=== PATIENT | male | born 1960 | race Caucasian/White ===

== ENCOUNTER 2019-02-05 08:35 | Inpatient (IN) | payer MEDICARE, OTHER ==
[2019-02-05] MEDS ORDERED: SODIUM CHLORIDE 0.9% 1,000 ML IV ONE ×2 (08:49)
[2019-02-05] MEDS ORDERED: methylPREDNISolone SOD SUCCI 125 MG/2 ML VIAL IV STA (08:51)
--- NOTE | 2019-02-05 08:58 | ED ---
Altered Mental Status HPI - General Stated Complaint: dehydration/UTI Time Seen by Provider: 02/05/19 08:35 Source: patient, EMS, RN notes reviewed Mode of arrival: EMS - History of Present Illness Initial Comments: This is a 59-year-old male history of cerebral palsy and not MS as previously reported who was brought in for evaluation. He is reported have altered mental status and decreased responsiveness. He also is had decreased oral intake over the past several days. Per paramedics he has a strong smell of urine odor. No reports of fevers chills nausea vomiting sweats or other symptoms. Patient is a poor historian MD Complaint: altered mental status, decreased responsiveness - Related Data Home Medications Medication Instructions Recorded Confirmed Baclofen [Lioresal] 20 mg PO TID 02/05/19 02/05/19 Docusate [Colace] 100 mg PO DAILY 02/05/19 02/05/19 Ferrous Sulfate [Feosol] 325 mg PO DAILY 02/05/19 02/05/19 Melatonin 10 mg PO HS 02/05/19 02/05/19 Metoprolol Tartrate [Lopressor] 25 mg PO BID 02/05/19 02/05/19 Naproxen 375 mg PO BID 02/05/19 02/05/19 Ranitidine HCl 150 mg PO BID 02/05/19 02/05/19 Sodium Bicarbonate 325 mg PO DAILY 02/05/19 02/05/19 Verapamil HCl 120 mg PO TID 02/05/19 02/05/19 traMADol HCL [Ultram] 50 mg PO TID PRN 02/05/19 02/05/19 Allergies Allergy/AdvReac Type Severity Reaction Status Date / Time No Known Allergies Allergy Verified 02/05/19 09:16 Review of Systems ROS Statement: Those systems with pertinent positive or pertinent negative responses have been documented in the HPI. ROS Other: All systems not noted in ROS Statement are negative. General Exam - General Exam Comments Initial Comments: This is a well-developed asthenic appearing male who is awake alert but lethargic. General appearance: alert, in no apparent distress Head exam: Present: atraumatic, normocephalic, normal inspection Eye exam: Present: normal appearance, PERRL, EOMI. Absent: scleral icterus, conjunctival injection, periorbital swelling ENT exam: Present: mucous membranes dry Neck exam: Present: normal inspection. Absent: tenderness, meningismus, lymphadenopathy Respiratory exam: Present: decreased breath sounds. Absent: respiratory distress, wheezes, rales, rhonchi, stridor Cardiovascular Exam: Present: regular rate, normal rhythm, normal heart sounds. Absent: systolic murmur, diastolic murmur, rubs, gallop, clicks GI/Abdominal exam: Present: soft, normal bowel sounds. Absent: distended, tenderness, guarding, rebound, rigid exam: Present: normal inspection, circumcision Extremities exam: Present: normal inspection, full ROM, normal capillary refill. Absent: tenderness, pedal edema, joint swelling, calf tenderness Back exam: Present: normal inspection Neurological exam: Present: alert, oriented X3, CN II-XII intact. Absent: motor sensory deficit Psychiatric exam: Present: normal affect, normal mood Skin exam: Present: warm, dry, intact, normal color, other (Is a large decubitus ulcer noted on the sacral area.). Absent: rash Course Vital Signs 02/05/19 02/05/19 02/05/19 08:52 09:00 09:24 Temperature 94.3 F L Pulse Rate 62 64 50 L Respiratory 18 9 L 18 Rate Blood Pressure 101/57 101/57 75/49 O2 Sat by Pulse 98 98 98 Oximetry 02/05/19 02/05/19 02/05/19 09:30 10:00 11:27 Temperature Pulse Rate 50 L 51 L 60 Respiratory 25 H 11 L 18 Rate Blood Pressure 97/57 75/49 105/57 O2 Sat by Pulse 97 100 99 Oximetry 02/05/19 14:19 Temperature 98 F Pulse Rate 65 Respiratory 14 Rate Blood Pressure 99/53 O2 Sat by Pulse 97 Oximetry - Reevaluation(s) Reevaluation #1: 02/05/19 09:57 Patient is refusing urinary catheter. He was noted have a blood pressure 75/48 he will receive more IV fluids. Medical Decision Making - Medical Decision Making Patient did present with complaints of change in mental status evidence of dehydration does demonstrate decubitus ulceration. His urine was foul-smelling upon arrival culture is pending. Patient is started on antibiotics are discussed case with Dr. Crane patient will be admitted with ID consultation patient states he seen Dr. Kamara before - Lab Data Result diagrams: 02/05/19 09:03 07/23/19 09:34 Lab Results 02/05/19 02/05/19 02/05/19 Range/Units 09:03 09:03 09:03 WBC 18.7 H (3.8-10.6) k/uL RBC 3.90 L (4.30-5.90) m/uL Hgb 10.7 L (13.0-17.5) gm/dL Hct 34.3 L (39.0-53.0) % MCV 88.2 (80.0-100.0) fL MCH 27.4 (25.0-35.0) pg MCHC 31.1 (31.0-37.0) g/dL RDW 16.8 H (11.5-15.5) % Plt Count 521 H (150-450) k/uL Neutrophils % 91 % Lymphocytes % 3 % Monocytes % 4 % Eosinophils % 1 % Basophils % 0 % Neutrophils # 17.1 H (1.3-7.7) k/uL Lymphocytes # 0.6 L (1.0-4.8) k/uL Monocytes # 0.7 (0-1.0) k/uL Eosinophils # 0.3 (0-0.7) k/uL Basophils # 0.0 (0-0.2) k/uL Hypochromasia Slight Anisocytosis Slight PT (9.0-12.0) sec INR (<1.2) APTT (22.0-30.0) sec Sodium (137-145) mmol/L Potassium (3.5-5.1) mmol/L Chloride (98-107) mmol/L Carbon Dioxide (22-30) mmol/L Anion Gap mmol/L BUN (9-20) mg/dL Creatinine (0.66-1.25) mg/dL Est GFR (CKD-EPI)AfAm (>60 ml/min/1.73 sqM) Est GFR (CKD-EPI)NonAf (>60 ml/min/1.73 sqM) Glucose (74-99) mg/dL Plasma Lactic Acid Ang 1.1 (0.7-2.0) mmol/L Calcium (8.4-10.2) mg/dL Total Bilirubin (0.2-1.3) mg/dL AST (17-59) U/L ALT (21-72) U/L Alkaline Phosphatase (38-126) U/L Ammonia <9 (<30) umol/L Creatine Kinase (55-170) U/L Troponin I <0.012 (0.000-0.034) ng/mL Total Protein (6.3-8.2) g/dL Albumin (3.5-5.0) g/dL Cortisol ug/dL Urine Color Urine Appearance (Clear) Urine pH (5.0-8.0) Ur Specific Sunspot (1.001-1.035) Urine Protein (Negative) Urine Glucose (UA) (Negative) Urine Ketones (Negative) Urine Blood (Negative) Urine Nitrite (Negative) Urine Bilirubin (Negative) Urine Urobilinogen (<2.0) mg/dL Ur Leukocyte Esterase (Negative) Urine WBC Clumps (None) /hpf Ur Squamous Epith Cells (0-4) /hpf Amorphous Sediment (None) /hpf Hyaline Casts (0-2) /lpf Urine Mucus (None) /hpf Urine Opiates Screen (NotDetected) Ur Oxycodone Screen (NotDetected) Urine Methadone Screen (NotDetected) Ur Propoxyphene Screen (NotDetected) Ur Barbiturates Screen (NotDetected) U Tricyclic Antidepress (NotDetected) Ur Phencyclidine Scrn (NotDetected) Ur Amphetamines Screen (NotDetected) U Methamphetamines Scrn (NotDetected) U Benzodiazepines Scrn (NotDetected) Urine Cocaine Screen (NotDetected) U Marijuana (THC) Screen (NotDetected) 02/05/19 02/05/19 02/05/19 Range/Units 09:34 09:34 09:34 WBC (3.8-10.6) k/uL RBC (4.30-5.90) m/uL Hgb (13.0-17.5) gm/dL Hct (39.0-53.0) % MCV (80.0-100.0) fL MCH (25.0-35.0) pg MCHC (31.0-37.0) g/dL RDW (11.5-15.5) % Plt Count (150-450) k/uL Neutrophils % % Lymphocytes % % Monocytes % % Eosinophils % % Basophils % % Neutrophils # (1.3-7.7) k/uL Lymphocytes # (1.0-4.8) k/uL Monocytes # (0-1.0) k/uL Eosinophils # (0-0.7) k/uL Basophils # (0-0.2) k/uL Hypochromasia Anisocytosis PT 10.7 (9.0-12.0) sec INR 1.0 (<1.2) APTT 29.6 (22.0-30.0) sec Sodium 145 (137-145) mmol/L Potassium 4.6 (3.5-5.1) mmol/L Chloride 111 H (98-107) mmol/L Carbon Dioxide 23 (22-30) mmol/L Anion Gap 11 mmol/L BUN 38 H (9-20) mg/dL Creatinine 1.27 H (0.66-1.25) mg/dL Est GFR (CKD-EPI)AfAm 70 (>60 ml/min/1.73 sqM) Est GFR (CKD-EPI)NonAf 61 (>60 ml/min/1.73 sqM) Glucose 110 H (74-99) mg/dL Plasma Lactic Acid Ang (0.7-2.0) mmol/L Calcium 9.6 (8.4-10.2) mg/dL Total Bilirubin 0.5 (0.2-1.3) mg/dL AST 29 (17-59) U/L ALT 15 L (21-72) U/L Alkaline Phosphatase 111 (38-126) U/L Ammonia (<30) umol/L Creatine Kinase 398 H (55-170) U/L Troponin I (0.000-0.034) ng/mL Total Protein 6.2 L (6.3-8.2) g/dL Albumin 3.2 L (3.5-5.0) g/dL Cortisol 70 ug/dL Urine Color Urine Appearance (Clear) Urine pH (5.0-8.0) Ur Specific Sunspot (1.001-1.035) Urine Protein (Negative) Urine Glucose (UA) (Negative) Urine Ketones (Negative) Urine Blood (Negative) Urine Nitrite (Negative) Urine Bilirubin (Negative) Urine Urobilinogen (<2.0) mg/dL Ur Leukocyte Esterase (Negative) Urine WBC Clumps (None) /hpf Ur Squamous Epith Cells (0-4) /hpf Amorphous Sediment (None) /hpf Hyaline Casts (0-2) /lpf Urine Mucus (None) /hpf Urine Opiates Screen (NotDetected) Ur Oxycodone Screen (NotDetected) Urine Methadone Screen (NotDetected) Ur Propoxyphene Screen (NotDetected) Ur Barbiturates Screen (NotDetected) U Tricyclic Antidepress (NotDetected) Ur Phencyclidine Scrn (NotDetected) Ur Amphetamines Screen (NotDetected) U Methamphetamines Scrn (NotDetected) U Benzodiazepines Scrn (NotDetected) Urine Cocaine Screen (NotDetected) U Marijuana (THC) Screen (NotDetected) 02/05/19 Range/Units 12:55 WBC (3.8-10.6) k/uL RBC (4.30-5.90) m/uL Hgb (13.0-17.5) gm/dL Hct (39.0-53.0) % MCV (80.0-100.0) fL MCH (25.0-35.0) pg MCHC (31.0-37.0) g/dL RDW (11.5-15.5) % Plt Count (150-450) k/uL Neutrophils % % Lymphocytes % % Monocytes % % Eosinophils % % Basophils % % Neutrophils # (1.3-7.7) k/uL Lymphocytes # (1.0-4.8) k/uL Monocytes # (0-1.0) k/uL Eosinophils # (0-0.7) k/uL Basophils # (0-0.2) k/uL Hypochromasia Anisocytosis PT (9.0-12.0) sec INR (<1.2) APTT (22.0-30.0) sec Sodium (137-145) mmol/L Potassium (3.5-5.1) mmol/L Chloride (98-107) mmol/L Carbon Dioxide (22-30) mmol/L Anion Gap mmol/L BUN (9-20) mg/dL Creatinine (0.66-1.25) mg/dL Est GFR (CKD-EPI)AfAm (>60 ml/min/1.73 sqM) Est GFR (CKD-EPI)NonAf (>60 ml/min/1.73 sqM) Glucose (74-99) mg/dL Plasma Lactic Acid Ang (0.7-2.0) mmol/L Calcium (8.4-10.2) mg/dL Total Bilirubin (0.2-1.3) mg/dL AST (17-59) U/L ALT (21-72) U/L Alkaline Phosphatase (38-126) U/L Ammonia (<30) umol/L Creatine Kinase (55-170) U/L Troponin I (0.000-0.034) ng/mL Total Protein (6.3-8.2) g/dL Albumin (3.5-5.0) g/dL Cortisol ug/dL Urine Color Yellow Urine Appearance Cloudy (Clear) Urine pH 5.5 (5.0-8.0) Ur Specific Sunspot 1.016 (1.001-1.035) Urine Protein 1+ H (Negative) Urine Glucose (UA) Negative (Negative) Urine Ketones Trace H (Negative) Urine Blood Small H (Negative) Urine Nitrite Negative (Negative) Urine Bilirubin Negative (Negative) Urine Urobilinogen 2.0 (<2.0) mg/dL Ur Leukocyte Esterase Large H (Negative) Urine WBC Clumps Rare H (None) /hpf Ur Squamous Epith Cells 2 (0-4) /hpf Amorphous Sediment Occasional H (None) /hpf Hyaline Casts 4 H (0-2) /lpf Urine Mucus Occasional H (None) /hpf Urine Opiates Screen Detected H (NotDetected) Ur Oxycodone Screen Not Detected (NotDetected) Urine Methadone Screen Not Detected (NotDetected) Ur Propoxyphene Screen Not Detected (NotDetected) Ur Barbiturates Screen Not Detected (NotDetected) U Tricyclic Antidepress Not Detected (NotDetected) Ur Phencyclidine Scrn Not Detected (NotDetected) Ur Amphetamines Screen Not Detected (NotDetected) U Methamphetamines Scrn Not Detected (NotDetected) U Benzodiazepines Scrn Not Detected (NotDetected) Urine Cocaine Screen Not Detected (NotDetected) U Marijuana (THC) Screen Not Detected (NotDetected) - EKG Data -: EKG Interpreted by Vt EKG shows normal: sinus rhythm (Sinus bradycardia rate of 57 appear interval 174 QRS of 90 QT since QTC 460/447) - Radiology Data Radiology results: report reviewed (Imaging showed no definite acute findings.), image reviewed Disposition Clinical Impression: Sacral decubitus ulcer, stage III, Dehydration, Failure to thrive syndrome, adult, Renal insufficiency syndrome, Leukocytosis Disposition: ADMITTED IP TO THIS [facility] Condition: Fair Referrals: Dontae Swanson MD [Primary Care Provider] - 1-2 days
[2019-02-05] MEDS ORDERED: SODIUM CHLORIDE 0.9% 1,000 ML IV STA (09:32)
[2019-02-05 09:35] LABS: Lactic Acid, Venous 1.1 mmol/L (0.7-2.0)
[2019-02-05 09:42] LABS: Ammonia <9 umol/L (<30)
[2019-02-05 09:46] LABS: Anisocytosis Slight; Basophils % (A) 0 %; Eosinophils # (A) 0.3 k/uL (0-0.7); Eosinophils % (A) 1 %; HCT 34.3 % (39.0-53.0); HGB 10.7 gm/dL (13.0-17.5); Hypochromasia Slight; Lymphocytes # (A) 0.6 k/uL (1.0-4.8); Lymphocytes % (A) 3 %; MCH 27.4 pg (25.0-35.0); MCHC 31.1 g/dL (31.0-37.0); MCV 88.2 fL (80.0-100.0); Mean Platelet Volume 6.8; Monocytes # (A) 0.7 k/uL (0-1.0); Monocytes % (A) 4 %; Neutrophils # (A) 17.1 k/uL (1.3-7.7); Neutrophils % (A) 91 %; Platelet Count 521 k/uL (150-450); RDW 16.8 % (11.5-15.5); WBC 18.7 k/uL (3.8-10.6)
[2019-02-05 10:00] LABS: Partial Thromboplastin Time 29.6 sec (22.0-30.0); Prothrombin Time 10.7 sec (9.0-12.0)
[2019-02-05 10:03] LABS: Albumin 3.2 g/dL (3.5-5.0); Calcium 9.6 mg/dL (8.4-10.2); Potassium 4.6 mmol/L (3.5-5.1); Total Bilirubin 0.5 mg/dL (0.2-1.3); Total Protein 6.2 g/dL (6.3-8.2)
--- NOTE | 2019-02-05 10:14 | CT ---
EXAMINATION TYPE: CT brain wo con DATE OF EXAM: 02/05/2019 COMPARISON: None HISTORY: Weakness, AMS CT DLP: 1099.4 mGycm Automated exposure control for dose reduction was used. Helical imaging through the brain. FINDINGS: There is no hemorrhage or hydrocephalus present. Cortical atrophy is noted. There are cerebral vascul ar calcifications. Orbits show a symmetric appearance. Calvarium is intact. Paranasal sinuses and mas toid air cells as visualized are remarkable for possible mucus retention cyst or polyp in the left ma xillary sinus, inflammatory change in the mastoid air cells on the left. Periventricular white matter shows patchy low attenuation. There is some artifact present. IMPRESSION: AGE-RELATED CHANGES OF ATROPHY AND PROBABLE CHRONIC SMALL VESSEL ISCHEMIA.
--- NOTE | 2019-02-05 10:17 | XR ---
EXAMINATION TYPE: XR chest 2V DATE OF EXAM: 02/05/2019 COMPARISON: NONE HISTORY: Altered mental status TECHNIQUE: Frontal and lateral views of the chest are obtained. FINDINGS: There is some increased AP diameter of the chest with flattening of hemidiaphragms suggest ing possible underlying COPD. Multilevel compression deformities present in the lower thoracic, upper lumbar spine region. Retrocardiac density with central lucencies compatible with underlying hiatal h ernia. There may be some basilar atelectasis or scarring. Patient is markedly rotated. Heart size tho ught to be normal accounting for technique. No evident pneumothorax. There are overlying cardiac lead s. No evident pleural effusion. IMPRESSION: Some minimal basilar atelectasis or scarring may be present, follow-up as indicated. Add itional findings above.
[2019-02-05 13:17] LABS: Amorphous Sediment,Urine Occasional /hpf; Appearance,Urine Cloudy (Clear); Bilirubin,Urine Negative (Negative); Blood,Urine Small (Negative); Color,Urine Yellow; Glucose,Urine (UA) Negative (Negative); Hyaline Casts,Urine 4 /lpf (0-2); Ketones,Urine Trace (Negative); Leukocyte Esterase,Urine Large (Negative); Mucus,Urine Occasional /hpf; Nitrite,Urine Negative (Negative); PH, Urine 5.5 (5.0-8.0); Protein,Urine 1+ (Negative); Specific Gravity,Urine 1.016 (1.001-1.035); Squamous Epithelial Cell,Urine 2 /hpf (0-4)
[2019-02-05 13:27] LABS: Amphetamine Screen,Urine Not Detected (NotDetected); Barbiturate Screen,Urine Not Detected (NotDetected); Benzodiazepines Screen,Urine Not Detected (NotDetected); Cocaine Screen,Urine Not Detected (NotDetected); Methadone Screen, Urine Not Detected (NotDetected); Opiate Screen,Urine Detected (NotDetected); Oxycodone Screen, Urine Not Detected (NotDetected); Phencyclidine Screen,Urine Not Detected (NotDetected); Tricyclic Antidepressant,Urine Not Detected (NotDetected); Urn Cannabinoid Scrn Not Detected (NotDetected)
[2019-02-05] MEDS ORDERED: cefTRIAXone IN SWFI 1,000 MG/10 ML SYRINGE IVP STA (13:45)
[2019-02-05] MEDS ORDERED: NALOXONE 0.4 MG/ML 1 ML VIAL IV PRN (14:58)
[2019-02-05] MEDS ORDERED: ACETAMINOPHEN TAB 325 MG TAB PO PRN (14:58)
[2019-02-05] MEDS: traMADol 50 MG TAB PO PRN (15:13)
[2019-02-05] MEDS: SODIUM CHLORIDE 0.9% 1,000 ML IV SCH ×2 (15:15→23:49)
[2019-02-05] MEDS: BACLOFEN 10 MG TAB PO SCH ×2 (17:03→19:51)
[2019-02-05] MEDS: PIPERACILLIN-TAZOBACTAM 3.375 GM in SODIUM CHLORIDE 0.9% 100 ML IVPB SCH ×2 (17:03→23:50)
[2019-02-05] MEDS: VERAPAMIL 40 MG TAB PO SCH ×2 (17:34→19:51)
--- NOTE | 2019-02-05 18:36 | P.HPIM ---
History of Present Illness H&P Date: 02/05/19 (Large infected decubitus, UTI.) Chief Complaint: 59 years old white male with altered mental status. This is a dictation of history and physical patient is Dr. Dontae Swanson and I am covering him at this time and the patient supposedly will continue care with me. Dr. Swanson. Patient brought to the emergency room at [facility], 59 years old white male they considered his past diagnosis of cerebral palsy, and he has decrease has reported altered mental status and unresponsiveness over the past several days her the ER, when the paramedics pick them up he was with the strong smell of urine as well as the order of infection. As patient seen and evaluated in the ER module 5, he stated that he did not have palsyt but he fell off the stair accidentally and be below age of 1 year as and he went through the stairs resulted in several fractures and he had subsequently multiple surgery as well and head injury as well. However his status appears to be cerebral palsy. His current medication is #1 baclofen 20 mg 3 times a day Colace 100 mg daily and he'll complain of chronic constipation. Ferrous sulfate Feosol 325 mg once a day, melatonin 10 mg at bedtime, metoprolol tartrate 25 mg twice a day, naproxen 375 mg twice a day, amantadine HCL 150 mg twice a day, sodium bicarb 325 mg once daily, verapamil 120 mg 3 times a day as needed tramadol 50 mg 3 times a day. Condition ALLERGY is unknown. He has a sibling but he was refused to talk about it and he doesn't want to communicate with them. He has a friend who will come and help him. Both parents unclear as a new patient who is POA however patient can speak for himself. Habits: He smoked a pack per day. No alcohol intake. Review of system: Mainly associated with the smell and the being on his back and large decubitus infected and need for for care. He stated that he does not want to go to any prison and he had a home and he wants to go back to his home's unclear how he and help himself with the one friend able to calm intermittently. Patient stated that he can urinate, and then when he feel that he wants to go to the bathroom he goes to commode or bedpan but I not sure about his mobility to do that on his own. Review of system: He is conscious alert. No chest pain and no palpitation with a history of hypertension. He had history of underlying severe deformity of the thorax with the underlying increased anteroposterior diameter with kyphoscoliosis. He has natural teeth and able to eat. He had a scar in his abdomen and scar on the appendix area and he stated the abdomen was for hernia repair. Because of his large decubitus on his back with the vacation no and pocketing behind and probably circumferential 15 cm or more. Patient seen by Dr. Kamara the infectious disease who knows him from previous admission at [facility] under care of Dr. Swanson at that time. I did smoke was Dr. Kamara as well as a Blossom informs me that the patient needs a fourth her debridement extensively on the back and he will be consulting Dr. Mccarthy or Dr. maurice has been knowing the patient before. He could not move his lower extremities and he had also fungal infection of the toenails. He may need rectal suppository to start his BM and a shower as well care. Review of other systems and the rest of the 14was not contributory. On examination Temperature 90.8 pulse 65. Preventative regular respiratory rate 14 and blood pressure at the time of admission 99/53 however subsequently at 1600 hour his blood pressure 131/76 and he has also rate of 67 and respiratory rate 16 and his pulse ox 98 on room air. Patient on verapamil and planned to have occasionally bradycardia. HEENT: The head was normocephalic and atraumatic pupil was equal reactive conjunctiva was pink sclera was nonicteric he had fascial cyst when I ask him about it he said his renal cyst chronically present. Oropharynx he had missing teeth upper and lower but the rest can be used for his eating and able to eat and swallow normally. Hearing is normal. The chest: Severe deformity of the thoracic cavity with normal breath sound and the chest x-ray atelectasis minimal and severe rotation which is the patient current structure of the thorax with increased anteroposterior diameter. Heart regular sinus rhythm occasional bradycardia due to medication, patient has history of hypertension which is controlled very well and history of tachycardia in the past currently controlled as well. No chest pain no anginal pain. The abdomen soft positive bowel sounds no tenderness. Genitalia was normal. Back: Severe kyphoscoliosis with the large area of the coccyx and the sacrum and the lower lumbar of decubitus due to bedridden. With the love tissue of dictation as well needs further debridement. Extremities: No purposes movement and he could not really raise his legs or moving the feet intentionally and the pulses is impaired 1+ over 2+ bilaterally. Assessment: #1 large infected decubitus with bad smell and odor. #2 urinary tract infection. #3 underlying history of cerebral palsy, computed tomography scan of the brain was done on admission in the ER indicating age-related changes of atrophy and probable chronic small vessel ischemia. #4 EKG on admission was sinus bradycardia with the rate 57 bpm with the normal EKG. #5 leukocytosis secondary to the infection questionable sepsis. Plan: #1 continue the current medication #20 consultation with infectious disease Dr. Kamara where I did talk to him today on the phone. #3 consultation with the surgeon for evaluation and treatment and debridement with the infected large decubitus. #4 antibiotic started Zosyn IV piggyback per infectious disease. For further treatment depending on the progression. We will increase the Colace to twice a day. May need Dulcolax suppository for BM. Past Medical History Additional Past Medical History / Comment(s): Cerbral Palsy History of Any Multi-Drug Resistant Organisms: None Reported Past Surgical History: No Surgical Hx Reported Past Psychological History: No Psychological Hx Reported Smoking Status: Never smoker Past Alcohol Use History: None Reported Past Drug Use History: None Reported Medications and Allergies Home Medications Medication Instructions Recorded Confirmed Type Baclofen [Lioresal] 20 mg PO TID 02/05/19 02/05/19 History Docusate [Colace] 100 mg PO DAILY 02/05/19 02/05/19 History Ferrous Sulfate [Feosol] 325 mg PO DAILY 02/05/19 02/05/19 History Metoprolol Tartrate [Lopressor] 25 mg PO BID 02/05/19 02/05/19 History RX: Melatonin 10 mg PO HS 02/05/19 02/05/19 History RX: Naproxen 375 mg PO BID 02/05/19 02/05/19 History RX: Ranitidine HCl 150 mg PO BID 02/05/19 02/05/19 History RX: Sodium Bicarbonate 325 mg PO DAILY 02/05/19 02/05/19 History RX: Verapamil HCl 120 mg PO TID 02/05/19 02/05/19 History traMADol HCL [Ultram] 50 mg PO TID PRN 02/05/19 02/05/19 History Allergies Allergy/AdvReac Type Severity Reaction Status Date / Time No Known Allergies Allergy Verified 02/05/19 09:16 Physical Exam Vitals: Vital Signs Temp Pulse Resp BP Pulse Ox 02/05/19 16:00 67 16 131/76 02/05/19 15:00 61 18 116/84 98 02/05/19 14:19 98 F 65 14 99/53 97 02/05/19 11:27 60 18 105/57 99 02/05/19 10:00 51 L 11 L 75/49 100 02/05/19 09:30 50 L 25 H 97/57 97 02/05/19 09:24 50 L 18 75/49 98 02/05/19 09:00 64 9 L 101/57 98 02/05/19 08:52 94.3 F L 62 18 101/57 98 Intake and Output 02/05/19 02/05/19 02/05/19 06:59 14:59 22:59 Other: Voiding Method Urinal Diaper Weight 49.895 kg Results CBC & Chem 7: 02/05/19 09:03 02/05/19 09:34 Labs: Abnormal Lab Results - Last 24 Hours (Table) 02/05/19 02/05/19 02/05/19 Range/Units 09:03 09:34 12:55 WBC 18.7 H (3.8-10.6) k/uL RBC 3.90 L (4.30-5.90) m/uL Hgb 10.7 L (13.0-17.5) gm/dL Hct 34.3 L (39.0-53.0) % RDW 16.8 H (11.5-15.5) % Plt Count 521 H (150-450) k/uL Neutrophils # 17.1 H (1.3-7.7) k/uL Lymphocytes # 0.6 L (1.0-4.8) k/uL Chloride 111 H (98-107) mmol/L BUN 38 H (9-20) mg/dL Creatinine 1.27 H (0.66-1.25) mg/dL Glucose 110 H (74-99) mg/dL ALT 15 L (21-72) U/L Creatine Kinase 398 H (55-170) U/L Total Protein 6.2 L (6.3-8.2) g/dL Albumin 3.2 L (3.5-5.0) g/dL Urine Protein 1+ H (Negative) Urine Ketones Trace H (Negative) Urine Blood Small H (Negative) Ur Leukocyte Esterase Large H (Negative) Urine WBC 50 H (0-5) /hpf Urine WBC Clumps Rare H (None) /hpf Amorphous Sediment Occasional H (None) /hpf Hyaline Casts 4 H (0-2) /lpf Urine Mucus Occasional H (None) /hpf Urine Opiates Screen Detected H (NotDetected)
[2019-02-05] MEDS ORDERED: BISACODYL 10 MG SUPP RECTAL STA (18:46)
[2019-02-05] MEDS: METOPROLOL TARTRATE 25 MG TAB PO SCH (19:51)
[2019-02-05] MEDS: FAMOTIDINE 20 MG TAB PO SCH (19:51)
[2019-02-05] MEDS: NAPROXEN 250 MG TAB PO SCH (19:52)
[2019-02-05] MEDS: MELATONIN 5 MG TABLET PO SCH (19:52)
[2019-02-05] MEDS: DOCUSATE 100 MG CAP PO SCH (19:53)
--- NOTE | 2019-02-05 23:33 | P.CONS ---
History of Present Illness - Reason for Consult Consult date: 02/05/19 Urinary tract infection and sacral pressure ulcer Requesting physician: Milo Crane - Chief Complaint Mental status changes and foul-smelling urine - History of Present Illness Patient is a 59 year male with a past medical history significant for spina bifida ,previous history of left renal/reteroperitoneal abscess ,Patient has been brought in to [facility] when the mass for the patient did have decreased level of responsiveness decreased oral intake not feeling well cloudy smelly urine patient's symptom has been going on for few days including decreased oral intake patient was evaluated by the fistula presented to the hospital patient was hypothermic with a temperature of 94 he did have elevated white count 15,000 did have a positive UA with a diagnosis of urinary tract infection with sepsis patient was started on Zosyn and infectious disease was consulted for further recommendation regarding antibiotic Patient also noticed to have a sacral pressure ulcer the patient is a has for a couple of weeks now patient has no symptoms of pain to that area he did have a necrotic page Foul-Smelling to the Sacral Wound Area Review of Systems Positive points has been mentioned in HPI rest of the systems are negative Past Medical History Additional Past Medical History / Comment(s): Cerbral Palsy History of Any Multi-Drug Resistant Organisms: None Reported Past Surgical History: No Surgical Hx Reported Past Psychological History: No Psychological Hx Reported Smoking Status: Never smoker Past Alcohol Use History: None Reported Past Drug Use History: None Reported Medications and Allergies Home Medications Medication Instructions Recorded Confirmed Type Baclofen [Lioresal] 20 mg PO TID 02/05/19 02/05/19 History Docusate [Colace] 100 mg PO DAILY 02/05/19 02/05/19 History Ferrous Sulfate [Feosol] 325 mg PO DAILY 02/05/19 02/05/19 History Melatonin 10 mg PO HS 02/05/19 02/05/19 History Metoprolol Tartrate [Lopressor] 25 mg PO BID 02/05/19 02/05/19 History Naproxen 375 mg PO BID 02/05/19 02/05/19 History Ranitidine HCl 150 mg PO BID 02/05/19 02/05/19 History Sodium Bicarbonate 325 mg PO DAILY 02/05/19 02/05/19 History Verapamil HCl 120 mg PO TID 02/05/19 02/05/19 History traMADol HCL [Ultram] 50 mg PO TID PRN 02/05/19 02/05/19 History Allergies Allergy/AdvReac Type Severity Reaction Status Date / Time No Known Allergies Allergy Verified 02/05/19 09:16 Physical Exam Vitals: Vital Signs Temp Pulse Resp BP Pulse Ox 02/05/19 16:00 67 16 131/76 02/05/19 15:00 61 18 116/84 98 02/05/19 14:19 98 F 65 14 99/53 97 02/05/19 11:27 60 18 105/57 99 02/05/19 10:00 51 L 11 L 75/49 100 02/05/19 09:30 50 L 25 H 97/57 97 02/05/19 09:24 50 L 18 75/49 98 02/05/19 09:00 64 9 L 101/57 98 02/05/19 08:52 94.3 F L 62 18 101/57 98 Intake and Output 02/05/19 02/05/19 02/05/19 06:59 14:59 22:59 Other: Voiding Method Urinal Diaper Weight 49.895 kg GENERAL DESCRIPTION: Middle-aged male lying in bed, no distress. No tachypnea or accessory muscle of respiration use. HEENT: Shows Pallor , no scleral icterus. Oral mucous membrane is dry. No p haryngeal erythema or thrush NECK: Trachea central, no thyromegaly. LUNGS: Unlabored breathing. Decreased this from the base. No wheeze or crackle. HEART: S1, S2, regular rate and rhythm. No loud murmur ABDOMEN: Soft, no tenderness , guarding or rigidity, no organomegaly EXTREMITIES: No edema of feet. SKIN: No rash, no masses palpable. SACRUM: Patient did have unstageable sacral pressure ulcer with necrotic patch some foul-smelling but no significant redness NEUROLOGICAL: The patient is awake, alert, oriented x3, mood and affect normal. Results CBC & Chem 7: 02/05/19 09:03 02/05/19 09:34 Labs: Abnormal Lab Results - Last 24 Hours (Table) 02/05/19 02/05/19 02/05/19 Range/Units 09:03 09:34 12:55 WBC 18.7 H (3.8-10.6) k/uL RBC 3.90 L (4.30-5.90) m/uL Hgb 10.7 L (13.0-17.5) gm/dL Hct 34.3 L (39.0-53.0) % RDW 16.8 H (11.5-15.5) % Plt Count 521 H (150-450) k/uL Neutrophils # 17.1 H (1.3-7.7) k/uL Lymphocytes # 0.6 L (1.0-4.8) k/uL Chloride 111 H (98-107) mmol/L BUN 38 H (9-20) mg/dL Creatinine 1.27 H (0.66-1.25) mg/dL Glucose 110 H (74-99) mg/dL ALT 15 L (21-72) U/L Creatine Kinase 398 H (55-170) U/L Total Protein 6.2 L (6.3-8.2) g/dL Albumin 3.2 L (3.5-5.0) g/dL Urine Protein 1+ H (Negative) Urine Ketones Trace H (Negative) Urine Blood Small H (Negative) Ur Leukocyte Esterase Large H (Negative) Urine WBC 50 H (0-5) /hpf Urine WBC Clumps Rare H (None) /hpf Amorphous Sediment Occasional H (None) /hpf Hyaline Casts 4 H (0-2) /lpf Urine Mucus Occasional H (None) /hpf Urine Opiates Screen Detected H (NotDetected) Assessment and Plan Assessment: 1-patient has been brought to the hospital with sepsis in this patient who did have hypokalemia elevated white count source is likely urinary tract infection in this patient who did have a history of complicated UTI with abscess 2-patient with unstageable sacral pressure ulcer but no definite cellulitis Plan: 1-patient will be treated with Zosyn 3.375 g every 8 hours 2-surgical consultation for debridement of the sacral pressure ulcer and deep culture if needed in the meantime keep the area of the pressure 3-IV fluids we will follow on clinical condition and culture to further adjust medication if needed Thank you for this consultation will follow this patient along with you Time with Patient: Greater than 30
[2019-02-06] MEDS: PIPERACILLIN-TAZOBACTAM 3.375 GM in SODIUM CHLORIDE 0.9% 100 ML IVPB SCH ×2 (08:16→16:18)
[2019-02-06] MEDS ORDERED: DOCUSATE 100 MG CAP PO SCH (09:00)
[2019-02-06] MEDS: SODIUM BICARBONATE TAB 650 MG TAB PO SCH (09:14)
[2019-02-06] MEDS: VERAPAMIL 40 MG TAB PO SCH ×3 (09:15→21:12)
[2019-02-06] MEDS: BACLOFEN 10 MG TAB PO SCH ×3 (09:15→21:12)
[2019-02-06] MEDS: traMADol 50 MG TAB PO PRN ×2 (09:18→16:17)
[2019-02-06] MEDS: FERROUS SULFATE 325 MG TAB PO SCH (09:20)
[2019-02-06] MEDS: METOPROLOL TARTRATE 25 MG TAB PO SCH (09:21)
[2019-02-06] MEDS: FAMOTIDINE 20 MG TAB PO SCH ×2 (09:23→21:10)
[2019-02-06] MEDS: NAPROXEN 250 MG TAB PO SCH ×2 (09:24→21:10)
[2019-02-06] MEDS: DOCUSATE 100 MG CAP PO SCH ×2 (09:25→21:07)
[2019-02-06 09:48] VITALS: BMI 15.7
[2019-02-06 10:18] LABS: African American GFR (CKD) >90 (>60 ml/min/1.73 sqM); Anion Gap 7 mmol/L; Blood Urea Nitrogen 18 mg/dL (9-20); Calcium 8.7 mg/dL (8.4-10.2); Carbon Dioxide 21 mmol/L (22-30); Chloride 114 mmol/L (98-107); Glucose 91 mg/dL (74-99); Potassium 3.9 mmol/L (3.5-5.1); Sodium 142 mmol/L (137-145)
[2019-02-06 10:19] LABS: Anisocytosis Slight; Basophils % (A) 0 %; Eosinophils # (A) 0.2 k/uL (0-0.7); Eosinophils % (A) 1 %; HCT 28.3 % (39.0-53.0); Hypochromasia Slight; Lymphocytes # (A) 0.4 k/uL (1.0-4.8); Lymphocytes % (A) 4 %; MCH 27.8 pg (25.0-35.0); MCHC 31.4 g/dL (31.0-37.0); MCV 88.6 fL (80.0-100.0); Mean Platelet Volume 6.7; Monocytes # (A) 0.4 k/uL (0-1.0); Monocytes % (A) 4 %; Neutrophils # (A) 9.6 k/uL (1.3-7.7); Neutrophils % (A) 90 %; Platelet Count 404 k/uL (150-450); WBC 10.8 k/uL (3.8-10.6)
[2019-02-06 10:39] LABS: HGB 8.9 gm/dL (13.0-17.5)
[2019-02-06] MEDS: SODIUM CHLORIDE 0.9% 1,000 ML IV SCH ×2 (13:30→14:49)
--- NOTE | 2019-02-06 13:32 | P.GSCN ---
History of Present Illness Consult date: 02/06/19 Reason for Consult: Sacral decubitus History of present illness: The patient is a 59-year-old man well-known to me. I been following him for a rectal adenocarcinoma. This was treated with chemo and radiation. He came in with mental status changes and was found to have a urinary tract infection and a sacral decubitus ulcer. According to him the ulcer has been there a few days to weeks. He is wheelchair bound. He's not had to have any ulcers debrided recently Review of Systems All systems: negative Past Medical History Past Medical History: Cancer (Rectal adenocarcinoma), Musculoskeletal Disorder Additional Past Medical History / Comment(s): Cerbral Palsy History of Any Multi-Drug Resistant Organisms: None Reported Past Surgical History: No Surgical Hx Reported Past Psychological History: No Psychological Hx Reported Smoking Status: Never smoker Past Alcohol Use History: None Reported Past Drug Use History: None Reported - Past Family History Mother Family Medical History: No Reported History Medications and Allergies Home Medications Medication Instructions Recorded Confirmed Type Baclofen [Lioresal] 20 mg PO TID 02/05/19 02/05/19 History Docusate [Colace] 100 mg PO DAILY 02/05/19 02/05/19 History Ferrous Sulfate [Feosol] 325 mg PO DAILY 02/05/19 02/05/19 History Melatonin 10 mg PO HS 02/05/19 02/05/19 History Metoprolol Tartrate [Lopressor] 25 mg PO BID 02/05/19 02/05/19 History Naproxen 375 mg PO BID 02/05/19 02/05/19 History Ranitidine HCl 150 mg PO BID 02/05/19 02/05/19 History Sodium Bicarbonate 325 mg PO DAILY 02/05/19 02/05/19 History Verapamil HCl 120 mg PO TID 02/05/19 02/05/19 History traMADol HCL [Ultram] 50 mg PO TID PRN 02/05/19 02/05/19 History Allergies Allergy/AdvReac Type Severity Reaction Status Date / Time No Known Allergies Allergy Verified 02/05/19 09:16 Surgical - Exam Osteopathic Statement: *. No significant issues noted on an osteopathic structural exam other than those noted in the History and Physical/Consult. Vital Signs Temp Pulse Resp BP Pulse Ox 94.3 F L 62 18 101/57 98 02/05/19 08:52 02/05/19 08:52 02/05/19 08:52 02/05/19 08:52 02/05/19 08:52 - General Appears in his usual state of health well nourished, no distress - ENT normal mucosa, no hearing loss - Neck trachea midline - Respiratory normal expansion, normal respiratory effort - Cardiovascular Rhythm: regular - Integumentary Sacral decubitus ulcer with foul-smelling drainage. Measurements will be documented in the operative note Results - Labs 02/06/19 09:28 02/06/19 09:28 Abnormal Lab Results - Last 24 Hours (Table) 02/05/19 02/06/19 02/06/19 Range/Units 12:55 09:28 09:28 WBC 10.8 H (3.8-10.6) k/uL RBC 3.20 L (4.30-5.90) m/uL Hgb 8.9 L D (13.0-17.5) gm/dL Hct 28.3 L (39.0-53.0) % RDW 17.0 H (11.5-15.5) % Neutrophils # 9.6 H (1.3-7.7) k/uL Lymphocytes # 0.4 L (1.0-4.8) k/uL Chloride 114 H (98-107) mmol/L Carbon Dioxide 21 L (22-30) mmol/L Urine WBC 50 H (0-5) /hpf Urine Opiates Screen Detected H (NotDetected) Microbiology - Last 24 Hours (Table) 02/05/19 09:03 Blood Culture - Preliminary Blood No Growth after 24 hours 02/05/19 12:55 Urine Culture - Preliminary Urine,Voided Diabetes panel 02/06/19 Range/Units 09:28 Sodium 142 (137-145) mmol/L Potassium 3.9 (3.5-5.1) mmol/L Chloride 114 H (98-107) mmol/L Carbon Dioxide 21 L (22-30) mmol/L BUN 18 (9-20) mg/dL Creatinine 0.87 (0.66-1.25) mg/dL Glucose 91 (74-99) mg/dL Calcium 8.7 (8.4-10.2) mg/dL Calcium panel 02/06/19 Range/Units 09:28 Calcium 8.7 (8.4-10.2) mg/dL Pituitary panel 02/06/19 Range/Units 09:28 Sodium 142 (137-145) mmol/L Potassium 3.9 (3.5-5.1) mmol/L Chloride 114 H (98-107) mmol/L Carbon Dioxide 21 L (22-30) mmol/L BUN 18 (9-20) mg/dL Creatinine 0.87 (0.66-1.25) mg/dL Glucose 91 (74-99) mg/dL Calcium 8.7 (8.4-10.2) mg/dL Adrenal panel 02/06/19 Range/Units 09:28 Sodium 142 (137-145) mmol/L Potassium 3.9 (3.5-5.1) mmol/L Chloride 114 H (98-107) mmol/L Carbon Dioxide 21 L (22-30) mmol/L BUN 18 (9-20) mg/dL Creatinine 0.87 (0.66-1.25) mg/dL Glucose 91 (74-99) mg/dL Calcium 8.7 (8.4-10.2) mg/dL Assessment and Plan Assessment: Sacral decubitus ulcer Paraplegia History rectal adenocarcinoma Plan: To or for surgical debridement. The patient's currently eating his lunch wall ranges for him tomorrow. Procedure risks and complications were discussed. Questions were encouraged and answered.
--- NOTE | 2019-02-06 16:28 | PN ---
PROGRESS NOTE DATE OF SERVICE: 02/06/2019 REASON FOR FOLLOWUP: UTI and sacral pressure ulcer. INTERVAL HISTORY: The patient is currently afebrile. The patient has been breathing comfortably. Denies having any chest pain. No nausea, vomiting, abdominal pain, or any diarrhea. PHYSICAL EXAMINATION: Blood pressure is 94/49 with a pulse of 66, temperature 98. He is 95% on room air. General description is a middle-aged male lying in bed in no distress. Respiratory system: Unlabored breathing. Clear to auscultation anteriorly. Heart S1, S2. Regular rate and rhythm. Abdomen soft, no tenderness. LABS: BUN of 18, creatinine 0.81, hemoglobin 8.1, white count 10.8. Urine cultures, blood cultures currently pending. DIAGNOSTIC IMPRESSION AND PLAN: 1. Patient admitted to the hospital with generalized weakness and a fever with concern for urinary tract infection. Currently covered with Zosyn to continue. 2. The patient did have unstageable sacral pressure ulcer. Postsurgical tomorrow. Positive deep cultures with infection. Monitor clinical course closely. Keep the area off the pressure. MMODL / IJN: [id number] /
[2019-02-06] MEDS: METOPROLOL TARTRATE 12.5 MG TAB PO SCH (21:07)
[2019-02-06] MEDS: MELATONIN 5 MG TABLET PO SCH (21:10)
[2019-02-07] MEDS: PIPERACILLIN-TAZOBACTAM 3.375 GM in SODIUM CHLORIDE 0.9% 100 ML IVPB SCH ×4 (00:05→23:09)
[2019-02-07] MEDS: SODIUM CHLORIDE 0.9% 1,000 ML IV SCH ×3 (07:28→22:18)
[2019-02-07 08:34] LABS: Anisocytosis Slight; Basophils % (A) 0 %; Eosinophils # (A) 0.2 k/uL (0-0.7); Eosinophils % (A) 3 %; HGB 9.2 gm/dL (13.0-17.5); Hypochromasia Slight; Lymphocytes # (A) 0.5 k/uL (1.0-4.8); Lymphocytes % (A) 5 %; MCH 26.6 pg (25.0-35.0); MCHC 30.6 g/dL (31.0-37.0); MCV 86.9 fL (80.0-100.0); Mean Platelet Volume 6.6; Monocytes # (A) 0.3 k/uL (0-1.0); Monocytes % (A) 4 %; Neutrophils # (A) 7.2 k/uL (1.3-7.7); Neutrophils % (A) 85 %; Platelet Count 464 k/uL (150-450); RBC 3.45 m/uL (4.30-5.90); RDW 16.7 % (11.5-15.5); Reticulocyte % 1.1 % (0.5-2.0); WBC 8.5 k/uL (3.8-10.6)
[2019-02-07 08:48] LABS: African American GFR (CKD) >90 (>60 ml/min/1.73 sqM); Anion Gap 8 mmol/L; Blood Urea Nitrogen 14 mg/dL (9-20); Calcium 8.8 mg/dL (8.4-10.2); Carbon Dioxide 24 mmol/L (22-30); Chloride 108 mmol/L (98-107); Creatine Kinase 203 U/L (55-170); Glucose 86 mg/dL (74-99); Potassium 3.9 mmol/L (3.5-5.1); Sodium 140 mmol/L (137-145)
[2019-02-07] MEDS ORDERED: IV FLUID CONTINUATION 1,000 ML IV ONE (08:52)
[2019-02-07] MEDS ORDERED: fentaNYL (PF) 50 MCG/ML 2 ML AMP ONE (08:58)
[2019-02-07] MEDS ORDERED: KETAMINE 10 MG/ML 20 ML VIAL ONE (08:58)
[2019-02-07] MEDS ORDERED: LIDOCAINE 1% INJ 10MG/ML (20 ML MDV) ONE (08:58)
[2019-02-07] MEDS ORDERED: MIDAZOLAM 2 MG/2 ML VIAL ONE (08:58)
[2019-02-07] MEDS ORDERED: PROPOFOL 10 MG/ML 20 ML VIAL IV ONE (08:58)
[2019-02-07] MEDS ORDERED: BUPIVACAINE (PF) 0.25% 30 ML VIAL SQ ONE ×2 (09:19)
[2019-02-07] MEDS ORDERED: LACTATED RINGERS 1,000 ML IV ONE (09:39)
--- NOTE | 2019-02-07 09:47 | P.OP ---
Date of Procedure: 02/07/19 Preoperative Diagnosis: Sacral decubitus ulcer Postoperative Diagnosis: Sacral decubitus ulcer with abscess Procedure(s) Performed: Excisional debridement sacral decubitus ulcer Anesthesia: MAC Surgeon: Ruthie Hernandez Estimated Blood Loss (ml): 25 Pathology: other (Culture, skin and subcutaneous tissues) Condition: stable Disposition: PACU Indications for Procedure: Infected sacral decubitus ulcer Operative Findings: Final measurements of the wound showed a skin defect of 9 x 5 cm. It undermines into the left 1 cm. Inferiorly 3 cm. Description of Procedure: The patient's taken the operative suite where he is prepped and draped in the usual sterile manner in the left lateral decubitus position. The necrotic skin and subcutaneous fatty tissue were sharply excised back to healthy bleeding tissue. There was noted to be an abscess cavity going inferiorly over the tip of the sacrum. Deep cultures were obtained of this material. The wound was then irrigated. It was packed with silver gauze and covered with dual Rodriguez. He tolerated the procedure without difficulty and was taken recovery room in satisfactory condition. We'll have wound care follow for further treatment.
[2019-02-07] MEDS: NAPROXEN 250 MG TAB PO SCH ×2 (11:03→22:13)
[2019-02-07] MEDS: FAMOTIDINE 20 MG TAB PO SCH ×2 (11:05→22:12)
[2019-02-07] MEDS: FERROUS SULFATE 325 MG TAB PO SCH (11:05)
[2019-02-07] MEDS: BACLOFEN 10 MG TAB PO SCH ×3 (11:05→22:13)
[2019-02-07] MEDS: DOCUSATE 100 MG CAP PO SCH ×2 (11:05→22:12)
[2019-02-07] MEDS: SODIUM BICARBONATE TAB 650 MG TAB PO SCH (11:06)
[2019-02-07] MEDS: traMADol 50 MG TAB PO PRN ×2 (11:11→22:13)
--- NOTE | 2019-02-07 12:41 | P.PN ---
Subjective Progress Note Date: 02/07/19 Principal diagnosis: #1 large necrotic decubitus on the lumbosacral area. #2. Tract infection. #3 bedridden with minimal movement at home. #4 cerebral palsy was walking disability. #5 chronic hypotensive, normal Andrea low-level. This is dictation on progress note date of service 02/07/2019. Patient seen and evaluated and he underwent a debridement yesterday and he has a dressing placed on the sacral and the lower lumbar decubitus which was infected. His laboratory has been reviewed and his white count currently normalized with the underlying use of the antibiotic and the debridement. Patient's conscious alert oriented 3 patient and his blood pressure 131/62 with a mean 85. His pulse ox between 98% to 94 however depend on his position as he has severe deformity of the thoracic cavity. His heart rate still in the bradycardic despite of adjusting his medication but he is nonsymptomatic and the blood pressure is back to the is normal. His white count 8.5 today on 02/07/2019, on admission 02/05/2019 his white count was 18.7 with marketed improvement. His anemia still present with hemoglobin 9.2 and hematocrit 30.0. His chemistry indicating normal sodium and normal potassium with the estimated glomerular filtration rate more than 90. We did recheck on CK with the underlying mild rhabdo and is improving with hydration from 398 currently 203 with a normal 170. Current exam today Patient has seen and examined denied any pain or complication or headache or blurred vision. He able to communicate. HEENT negative Neck was supple no JVD no thyromegaly no lymphadenopathy trachea midline. Chest severe abnormality with severe kyphoscoliosis and thoracic cavity expanded and he is a smoker with underlying COPD. Heart regular sinus rhythm. Abdomen soft positive bowel sounds. Extremities no edema and peripheral vascular disease with decreased pulses and no muscle tone, atrophic muscles with the DC was as well. Neuro: Cerebral palsy with a history of trauma prior to age of 1 year as he stated. Assessment: Large acute decubitus debridement for the necrotic tissue and infected. UTI however culture showed urogenital juan daniel. His leukocytosis is resolved. Patient is non-cooperative infusing the medication for the chronic constipation. The plan: We PT and OT was consulted, meanwhile we need to have administrator social welfare for brand planner. I do not think that patient will be able to be at home alone and he can care of his wound in the back with decubitus with inability to walk or to have any other help to help him for these care of his 1 and his medication as well with a friend. My suggestion that he should be continued in a shelter of his choice. Also we need to discuss the antibiotic and Dr. Novak willing to change antibiotic to oral. Meanwhile we need to discuss with Dr. Hernandez and the nurse practitioner that caring for the wound care center for women's patient will be followed by the wound care center and how we get the transportation to them meanwhile how long he should be in the hospital post debridement. Once arrangement by the brand planner and the administrator social welfare as well as the dictation from the surgeon as well as infectious disease will be discharging the patient with the question removal of the using the antibiotic also at outpatient. Objective - Vital Signs Vital signs: Vital Signs Temp 98.1 F 02/07/19 11:09 Pulse 53 L 02/07/19 11:23 Resp 17 02/07/19 11:09 BP 131/62 02/07/19 11:23 Pulse Ox 94 L 02/07/19 11:09 Intake & Output 02/06/19 02/07/19 02/07/19 18:59 06:59 18:59 Intake Total 1680 1590 350 Output Total 300 310 Balance 1680 1290 40 Weight 49.895 kg Intake: IV 350 Intake, IV Titration 1100 420 Amount Piperacillin-Tazobactam 3 100 .375 gm In Sodium Chloride 0.9% 100 ml @ 200 mls/hr IVPB Q8HR ANAY Rx#:[id number] Sodium Chloride 0.9% 1, 1000 420 000 ml @ 100 mls/hr IV . Q10H ANAY Rx#:[id number] Oral 580 1170 0 Output: Urine 300 300 Estimated Blood Loss 10 Other: Voiding Method Urinal Urinal # Voids 3 3 - Labs CBC & Chem 7: 02/07/19 07:52 02/07/19 07:52 Labs: Abnormal Lab Results - Last 24 Hours (Table) 02/07/19 02/07/19 Range/Units 07:52 07:52 RBC 3.45 L (4.30-5.90) m/uL Hgb 9.2 L (13.0-17.5) gm/dL Hct 30.0 L (39.0-53.0) % MCHC 30.6 L (31.0-37.0) g/dL RDW 16.7 H (11.5-15.5) % Plt Count 464 H (150-450) k/uL Lymphocytes # 0.5 L (1.0-4.8) k/uL Chloride 108 H (98-107) mmol/L Creatine Kinase 203 H (55-170) U/L Microbiology - Last 24 Hours (Table) 02/05/19 09:03 Blood Culture - Preliminary Blood No Growth after 48 hours 02/05/19 12:55 Urine Culture - Final Urine,Voided
[2019-02-07] MEDS: METOPROLOL TARTRATE 12.5 MG TAB PO SCH ×2 (12:45→22:12)
[2019-02-07] MEDS: VERAPAMIL 40 MG TAB PO SCH ×3 (12:48→22:14)
[2019-02-07 16:52] LABS: Iron Saturation 3.96 (15.00-50.00)
--- NOTE | 2019-02-07 20:49 | PN ---
PROGRESS NOTE DATE OF SERVICE: 02/07/2019. REASON FOR FOLLOWUP: 1. UTI. 2. Infected sacral pressure ulcer. INTERVAL HISTORY: The patient was taken to the OR this morning. The patient is status post debridement of his sacral wound. The patient noticed to have an abscess cavity which has been drained and culture has been obtained. The patient tolerated the procedure. Denies having any chest pain, shortness of breath or cough. No abdominal pain. No diarrhea. PHYSICAL EXAMINATION: Blood pressure 122/64 with a pulse of 50, temperature 98.1. He is 94% on room air. General description is a middle-aged male lying in bed in no distress. Respiratory system: Unlabored breathing, clear to auscultation anteriorly. Heart S1, S2. Regular rate and rhythm. Abdomen soft, no tenderness. Sacral wound is currently dressed up. LABS: Hemoglobin is 9.1, white count of 8.5. BUN of 14, creatinine 0.81. DIAGNOSTIC IMPRESSION AND PLAN: 1. Patient with infected sacral pressure ulcer with abscess, status post debridement. We will wait for the culture to finalize. Continue with Zosyn. 2. Positive urinalysis, however, urine culture has been negative. Monitor his clinical course closely. MMODL / IJN: [id number] /
[2019-02-07] MEDS: MELATONIN 5 MG TABLET PO SCH (22:12)
[2019-02-08] MEDS: SODIUM CHLORIDE 0.9% 1,000 ML IV SCH ×2 (05:02→22:25)
[2019-02-08] MEDS: PIPERACILLIN-TAZOBACTAM 3.375 GM in SODIUM CHLORIDE 0.9% 100 ML IVPB SCH ×2 (08:17→17:02)
[2019-02-08] MEDS: BACLOFEN 10 MG TAB PO SCH ×3 (08:18→22:18)
[2019-02-08] MEDS: METOPROLOL TARTRATE 12.5 MG TAB PO SCH ×2 (08:19→22:19)
[2019-02-08] MEDS: SODIUM BICARBONATE TAB 650 MG TAB PO SCH (08:19)
[2019-02-08] MEDS: NAPROXEN 250 MG TAB PO SCH ×2 (08:20→22:17)
[2019-02-08] MEDS: FERROUS SULFATE 325 MG TAB PO SCH (08:20)
[2019-02-08] MEDS: FAMOTIDINE 20 MG TAB PO SCH ×2 (08:20→22:17)
[2019-02-08] MEDS: DOCUSATE 100 MG CAP PO SCH ×2 (08:20→22:16)
[2019-02-08] MEDS: VERAPAMIL 40 MG TAB PO SCH ×3 (08:22→22:18)
[2019-02-08] MEDS: traMADol 50 MG TAB PO PRN ×2 (08:25→17:02)
--- NOTE | 2019-02-08 09:24 | P.CON ---
Consult Note - . Consult date: 02/08/19 Assessment/Plan:: This is a 59-year-old pleasant male who presented to the emergency room for altered mental status. Upon admission was found that the patient had a sacral decubitus nonhealing ulceration with pressure component with fatty later exposure. The site was surgically debrided final measurements of the wound 9 x 5 CM. Undermining noted inferiorly at 3 cm. Wound cultures are pending. Postsurgical intervention dressing included his silver and a DuoDERM. Patient was evaluated today dressing was soiled and saturated with a large amount of sanguineous fluid. Patient past medical history includes cerebral palsy, he is wheelchair-bound. Patient currently lives alone. He states that the ulceration started about a week or so ago when he began to notice it. Patient states that he has history of pressure ulcers in the past however he has not been to the wound care center. Discussed with patient the possibility utilization of wound VAC. Patient declined at this time stating that he needs to be able to sit up in his wheelchair because he does not want to continue to lay in bed. Currently patient is discussing that he is calling home upon discharge and is unsure if he wants to continue with wound care in the outpatient setting. Patient is agreeable at this time to continue with the prescribed dressings. Review Of Systems: Constitutional: No fever, no chills, no night sweats. No weight change. No weakness, fatigue or lethargy. No daytime sleepiness. Integumentary: Reports pressure ulcer to sacral. No rash or pruritus. No unusual bruising. No change in hair or nails. General Appearance: Alert, cooperative, no distress, appears stated age. Integumentary: Sacral decubitus ulcer with fatty layer exposure with pressure component- sanguineous drainage, fibrin, slough, and exudate noted Assessment/plan: 1. Sacral decubitus ulcer with fatty layer exposure with pressure component. dressing absorptive silver, DuoDERM to be changed Monday. May change outer dressing if soiled keep absorptive Silver in place only change Monday. Discussed with patient utilization of wound VAC patient declined. Discussed with patient utilization of outpatient wound care - patient to consider upon discharge. Pre-albumin ordered. Discussed with patient the importance of increasing protein in diet. Awaiting wound culture results. Thank you for the consultation, if any further questions we contact the wound care center. DNP note has been reviewed and discussed with Dr. Quijano and the impression and plan of care has been directed as dictated.
--- NOTE | 2019-02-08 12:59 | P.PN ---
Subjective Progress Note Date: 02/08/19 This is a progress note date of service N7 [id number] and patient comfortable and he had the debridement yesterday and waiting for the culture of the wound to adjust of the antibiotic. Currently patient on Zosyn IV piggyback and as I did display with Dr. Kishore hernández infectious disease he would like to him to stay one day more for availability of the culture prior to discharge. I did discharge the patient today however I can't really cancel this discharge to wait for the culture. The infectious disease Dr. Kishore hernández recommendation and opinion. Patient his white count on February 07 become normalized to 8.5 with the electrolytes within normal limit. Patient is conscious alert oriented and he is eating his lunch comfortably and his vital sign indicating a temperature 97.6 and heart rate is 56-65 beats per minutes respiratory rate 18 and blood pressure 116/68 with the underlying pulse ox 98%. His examination: Conscious alert oriented able to eat and swallow in bed and he could not ambulate and with the loss of function of the lower extremities. The HEENT no changes. Neck was supple no JVD no thyromegaly no lymphadenopathy trachea midline. Chest was clear to auscultation and percussion with the underlying increased anteroposterior diameter was deformity of the thorax. The The heart was regular sinus rhythm and abdomen was soft positive bowel sounds no organ enlargement extremities he had decrease in function decreased muscle tone muscle atrophy and minimal movement of the feet but he stated that he can stand up. The assessment: Infected large decubitus over the coccyx and the LS and debrided by Dr. Hernandez and culture is not available at this time and that will delay patient. For the discharge home and the brand planner made arrangement to be at home with the [facility] planning group to do that care for the patient has been as well as continuing the wound care center about cleaning out cleaning as well as follow- up as well as Dr. Kishore hernández. Assessment infected large decubitus with the leukocytosis and needed debridement. UTI however the culture was negative. Bradycardia secondary to medication and has been improved. Plan: We will wait for tomorrow for the culture and the changes of antibiotic to oral and subsequently discharged home if's agreeable with infectious disease is end of dictation thank you Objective - Vital Signs Vital signs: Vital Signs Temp 97.6 F 02/08/19 11:19 Pulse 56 L 02/08/19 11:19 Resp 18 02/08/19 11:19 BP 116/68 02/08/19 11:19 Pulse Ox 98 02/08/19 11:19 Intake & Output 02/07/19 02/08/19 02/08/19 18:59 06:59 18:59 Intake Total 2530 1390 720 Output Total 610 875 Balance 1920 515 720 Intake: IV 350 Intake, IV Titration 600 800 Amount Lactated Ringers 1,000 ml 200 @ 0 mls/hr IV .STK-MED ONE Rx#:[id number] Piperacillin-Tazobactam 3 100 100 .375 gm In Sodium Chloride 0.9% 100 ml @ 200 mls/hr IVPB Q8HR [facility] Rx#:[id number] Sodium Chloride 0.9% 1, 300 700 000 ml @ 100 mls/hr IV . Q10H [facility] Rx#:[id number] Oral 1580 590 720 Output: Urine 600 875 Estimated Blood Loss 10 Other: Voiding Method Urinal Urinal # Voids 3 - Labs CBC & Chem 7: 02/07/19 07:52 02/07/19 07:52 Labs: Abnormal Lab Results - Last 24 Hours (Table) 02/07/19 Range/Units 07:52 Iron 8 L (65-175) ug/dL TIBC 202 L (228-460) ug/dL Iron Saturation 3.96 L (15.00-50.00) Microbiology - Last 24 Hours (Table) 02/05/19 09:03 Blood Culture - Preliminary Blood No Growth after 72 hours 02/07/19 09:23 Gram Stain - Preliminary Buttock Wound Culture - Preliminary 02/07/19 09:23 Anaerobic Culture - Preliminary Buttock
--- NOTE | 2019-02-08 20:30 | PN ---
PROGRESS NOTE DATE OF SERVICE: 02/08/2019 REASON FOR FOLLOW UP: Infected sacral pressure ulcer. INTERVAL HISTORY: The patient is currently afebrile. Patient has been breathing comfortably. The patient denies having any chest pain. No shortness of breath. No cough. No abdominal pain. No pain to the sacral wound area. PHYSICAL EXAMINATION: Blood pressure 115/60 with a pulse of 86, Temperature is 97.6. He is 98% on room air. General description is a middle-aged male lying in bed in no distress. Respiratory system: Unlabored breathing. Clear to auscultation anteriorly. Heart S1, S2. Regular rate and rhythm. Abdomen is soft. No tenderness. Extremities: No edema of the feet. LABS: Hemoglobin 9.1, white count 8.5 with a BUN of 14, creatinine 0.81. The sacral wound cultures are currently pending. DIAGNOSTIC IMPRESSION AND PLAN: Patient with infected sacral pressure ulcer status post and drainage of an abscess while waiting for the culture to finalize to determine discharge antibiotic in view of the depth of infection, he will likely need a PICC line for outpatient antibiotic therapy. Continue with Zosyn at this point as white count normalized with it. Continue supportive care. MMODL / IJN: [id number] /
[2019-02-08] MEDS: MELATONIN 5 MG TABLET PO SCH (22:17)
[2019-02-09] MEDS: PIPERACILLIN-TAZOBACTAM 3.375 GM in SODIUM CHLORIDE 0.9% 100 ML IVPB SCH ×3 (00:38→16:30)
[2019-02-09] MEDS: traMADol 50 MG TAB PO PRN ×4 (00:39→21:55)
[2019-02-09] MEDS: DOCUSATE 100 MG CAP PO SCH ×2 (08:19→21:41)
[2019-02-09] MEDS: BACLOFEN 10 MG TAB PO SCH ×3 (08:19→21:54)
[2019-02-09] MEDS: FAMOTIDINE 20 MG TAB PO SCH ×2 (08:19→21:54)
[2019-02-09] MEDS: SODIUM BICARBONATE TAB 650 MG TAB PO SCH (08:19)
[2019-02-09] MEDS: FERROUS SULFATE 325 MG TAB PO SCH (08:19)
[2019-02-09] MEDS: VERAPAMIL 40 MG TAB PO SCH ×3 (08:20→21:55)
[2019-02-09] MEDS: NAPROXEN 250 MG TAB PO SCH ×2 (08:20→21:54)
[2019-02-09] MEDS: SODIUM CHLORIDE 0.9% 1,000 ML IV SCH ×2 (08:21→16:29)
[2019-02-09] MEDS: METOPROLOL TARTRATE 12.5 MG TAB PO SCH ×2 (08:32→21:54)
--- NOTE | 2019-02-09 10:17 | P.PN ---
Subjective Progress Note Date: 02/09/19 (Culture pending) Principal diagnosis: #1 large necrotic decubitus on the lumbosacral area. #2. Tract infection. #3 bedridden with minimal movement at home. #4 cerebral palsy was walking disability. #5 chronic hypotensive, normal Andrea low-level. Is a progress note date of service 02/09/2019. Patient seen and evaluated today, patient has no specific complaint, comfortabl e. On the examination temperature 97.7 F oral his pulse rate ranging between 70 and 58 bpm respiratory rate 16/m nonlabored, Blood pressure 123/69 stable was pulse ox on room air 96%. On exam: Patient is conscious alert oriented he understand that waiting for the culture results of the debridement of a large decubitus sacral with necrotic tissue. Dr. Kamara infectious disease, waiting for the culture, especially if needed IV antibiotic and need to place a PICC line prior to discharge. Culture is not available yet today. HEENT negative, neck was supple no JVD no thyromegaly no lymphadenopathy trachea midline. Chest was clear with the deformity of the thorax and increased anteroposterior diameter however there is no rhonchi's or wheezes, patient is a smoker but he did not want the patch at this time for nicotine skin patch. Heart was regular sinus rhythm. Abdomen soft positive bowel sounds Extremities no edema and positive pulses. No neurological changes. Assessment Assessment and plan Status post debridement of a large lumbo-sacral and coccygeal necrotic ulcer with the underlying infection. Waiting for the results of the culture prior to discharge, due to the need of antibiotic orally or IV, and if it is IV need a PICC line prior to discharge and what organisms we dealing with. Otherwise patient vital sign is stable. Objective - Vital Signs Vital signs: Vital Signs Temp 97.7 F 02/09/19 05:00 Pulse 58 L 02/09/19 05:00 Resp 16 02/09/19 05:00 BP 123/69 02/09/19 05:00 Pulse Ox 96 02/09/19 05:00 Intake & Output 02/08/19 02/09/19 02/09/19 18:59 06:59 18:59 Intake Total 2460 1490 Output Total 2400 1000 Balance 60 490 Intake: Intake, IV Titration 60 900 Amount IV Fluid Continuation 1, 60 000 ml @ 0 mls/hr IV .STK -MED ONE Rx#:[id number] Piperacillin-Tazobactam 3 100 .375 gm In Sodium Chloride 0.9% 100 ml @ 200 mls/hr IVPB Q8HR [facility] Rx#:[id number] Sodium Chloride 0.9% 1, 800 000 ml @ 100 mls/hr IV . Q10H [facility] Rx#:[id number] Oral 2400 590 Output: Urine 2400 1000 Other: Voiding Method Urinal Urinal # Voids 3 1 1 # Bowel Movements 1 - Labs CBC & Chem 7: 02/07/19 07:52 02/07/19 07:52 Labs: Microbiology - Last 24 Hours (Table) 02/05/19 09:03 Blood Culture - Preliminary Blood No Growth after 72 hours
[2019-02-09] MEDS: MELATONIN 5 MG TABLET PO SCH (21:53)
[2019-02-10] MEDS: PIPERACILLIN-TAZOBACTAM 3.375 GM in SODIUM CHLORIDE 0.9% 100 ML IVPB SCH ×3 (00:37→16:21)
[2019-02-10] MEDS: SODIUM CHLORIDE 0.9% 1,000 ML IV SCH ×2 (04:40→16:23)
[2019-02-10] MEDS: traMADol 50 MG TAB PO PRN ×3 (06:10→22:13)
[2019-02-10] MEDS: FAMOTIDINE 20 MG TAB PO SCH ×2 (07:52→22:14)
[2019-02-10] MEDS: BACLOFEN 10 MG TAB PO SCH ×3 (07:52→22:14)
[2019-02-10] MEDS: DOCUSATE 100 MG CAP PO SCH ×2 (07:52→21:52)
[2019-02-10] MEDS: FERROUS SULFATE 325 MG TAB PO SCH (07:52)
[2019-02-10] MEDS: NAPROXEN 250 MG TAB PO SCH ×2 (07:55→22:13)
[2019-02-10] MEDS: SODIUM BICARBONATE TAB 650 MG TAB PO SCH (07:55)
[2019-02-10] MEDS: METOPROLOL TARTRATE 12.5 MG TAB PO SCH ×2 (07:55→22:13)
[2019-02-10] MEDS: VERAPAMIL 40 MG TAB PO SCH ×3 (08:00→22:14)
--- NOTE | 2019-02-10 11:23 | P.PN ---
Subjective Progress Note Date: 02/10/19 Principal diagnosis: #1 large necrotic decubitus on the lumbosacral area. #2. Tract infection. #3 bedridden with minimal movement at home. #4 cerebral palsy was walking disability. #5 chronic hypotensive, normal Andrea low-level. Dictation on the progress note date of service 02/10/2019Monday. Patient seen and evaluated. The culture from the buttock area showed gram negative bacilli sensitivity is not available. We'll continue with IV antibiotic and tomorrow will find out if he need the PICC line or not and subsequent change the antibiotic if needed orally. Continuing the dressing on the decubitus. With the plan for discharge home tomorrow. Patient conscious alert oriented and no specific complaint, Temperature 97.8 F oral, heart rate 56 bpm and fluctuating from 68/m respiratory rate 18/m nonlabored, blood pressure 113/63. This pulse ox 97% on room air. HEENT: No changes able to eat and swallow with no difficulties with a history of trauma of childhood as well as history of cerebral pulsating. With inability of moving his lower extremities. Neck was supple no JVD no thyromegaly no lymphadenopathy trachea midline. Chest is clear normal breath sound with the underlying kyphoscoliosis and increase anteroposterior diameter with a history of smoking as well as the deformity of the thorax. Abdomen soft positive bowel sounds and he had a scar midline from previous surgery. Extremities no edema and muscle atrophy and inability to ambulate. Neurological exam no changes. Assessment: Large decubitus on the lumbosacral area and the buttocks underwent debridement by Dr. Hernandez as well as Dr. Novak following with the dressing. Patient will be followed by wound care center as well. We'll continue the antibiotic until the sensitivity with the underlying gram- negative bacilli was present. Plan continue the antibiotic and IV and supportive measures. On admission he has creatinine kinase mildly elevated 398, on the January down the creatinine kinase to 203. We'll be chicken tomorrow his BMP as well as CBC as well as creatine kinase. Objective - Vital Signs Vital signs: Vital Signs Temp 97.8 F 02/10/19 07:53 Pulse 56 L 02/10/19 07:53 Resp 18 02/10/19 07:53 BP 113/63 02/10/19 07:53 Pulse Ox 97 02/10/19 07:53 Intake & Output 02/09/19 02/10/19 02/10/19 18:59 06:59 18:59 Intake Total 1840 1800 Output Total 400 750 Balance 1440 1050 Intake: Intake, IV Titration 900 1800 Amount Piperacillin-Tazobactam 3 200 200 .375 gm In Sodium Chloride 0.9% 100 ml @ 200 mls/hr IVPB Q8HR [facility] Rx#:[id number] Sodium Chloride 0.9% 1, 700 1600 000 ml @ 100 mls/hr IV . Q10H [facility] Rx#:[id number] Oral 940 Output: Urine 400 750 Other: Voiding Method Urinal Urinal Urinal Diaper Diaper # Voids 2 1 # Bowel Movements 1 - Labs CBC & Chem 7: 02/07/19 07:52 02/07/19 07:52 Labs: Microbiology - Last 24 Hours (Table) 02/07/19 09:23 Anaerobic Culture - Final Buttock Anaerobic Gm Negative Bacilli 02/07/19 09:23 Gram Stain - Final Buttock Wound Culture - Final 02/05/19 09:03 Blood Culture - Preliminary Blood No Growth after 96 hours
--- NOTE | 2019-02-10 13:18 | PN ---
PROGRESS NOTE DATE OF SERVICE: 02/09/2019. REASON FOR FOLLOWUP VISIT: Infected sacral pressure ulcer. INTERVAL HISTORY: The patient is currently afebrile. Patient has been breathing comfortably. Denies having any chest pain or any cough. No abdominal pain. No diarrhea. No pain to the sacral wound area. PHYSICAL EXAMINATION: Blood pressure is 119/65 with a pulse of 68, temperature 96.8. He is 96% on room air. General description is a middle-aged male lying in bed in no distress. Respiratory system: Unlabored breathing. Clear to auscultation anteriorly. Heart S1, S2. Regular rate and rhythm. Abdomen soft. No tenderness. Examination of sacral wound did show wound base with minimal slough tissue. No significant redness or drainage. LABS: The culture currently showing anaerobic gram-negative bacilli. DIAGNOSTIC IMPRESSION AND PLAN: Patient with infected sacral pressure ulcer status post debridement and drainage of the abscess. The patient is currently covered with Zosyn. We are waiting for the culture to finalize to determine his discharge antibiotics. Local wound care was switched over to [facility]. Continue supportive care. MMODL / IJN: [id number] /
--- NOTE | 2019-02-10 21:56 | PN ---
PROGRESS NOTE DATE OF SERVICE: 02/10/2019. REASON FOR FOLLOWUP: Infected sacral pressure ulcer. INTERVAL HISTORY: The patient is currently afebrile. Patient has been breathing comfortably. Denies having any chest pain. No shortness of breath. No nausea, no vomiting. No abdominal pain and no diarrhea. PHYSICAL EXAMINATION: Blood pressure 135/68 with a pulse of 57, temperature 97.7, he is 96% on room air. GENERAL DESCRIPTION: A middle-aged male lying in bed in no distress. RESPIRATORY: Unlabored breathing. Clear to auscultation anteriorly. HEART: S1, S2. Regular rate and rhythm. ABDOMEN: Soft, no tenderness. LABS: No new labs have been obtained today. Back culture and anaerobic gram-negative bacilli. DIAGNOSTIC IMPRESSION AND PLAN: Patient with infected sacral pressure ulcer status post debridement. Cultures showing only anaerobic gram-negative bacilli. Plan will be for oral Cipro and Flagyl, however, in view of the wound, the patient would benefit from the wound VAC and possible transfer to the [facility]. Clinically doubt patient will be able to take care of this at home. Continue supportive care. MMODL / IJN: [id number] /
[2019-02-10] MEDS: MELATONIN 5 MG TABLET PO SCH (22:12)
[2019-02-11] MEDS: PIPERACILLIN-TAZOBACTAM 3.375 GM in SODIUM CHLORIDE 0.9% 100 ML IVPB SCH ×3 (00:08→18:26)
[2019-02-11] MEDS: SODIUM CHLORIDE 0.9% 1,000 ML IV SCH ×3 (00:55→21:28)
[2019-02-11] MEDS: traMADol 50 MG TAB PO PRN ×3 (05:33→21:33)
[2019-02-11] MEDS: SODIUM BICARBONATE TAB 650 MG TAB PO SCH (08:59)
[2019-02-11] MEDS: FAMOTIDINE 20 MG TAB PO SCH ×2 (08:59→21:27)
[2019-02-11] MEDS: FERROUS SULFATE 325 MG TAB PO SCH (08:59)
[2019-02-11] MEDS: BACLOFEN 10 MG TAB PO SCH ×3 (08:59→21:27)
[2019-02-11] MEDS: DOCUSATE 100 MG CAP PO SCH ×2 (08:59→21:27)
[2019-02-11] MEDS: METOPROLOL TARTRATE 12.5 MG TAB PO SCH ×2 (08:59→21:27)
[2019-02-11] MEDS: NAPROXEN 250 MG TAB PO SCH ×2 (09:00→21:27)
[2019-02-11] MEDS: VERAPAMIL 40 MG TAB PO SCH ×3 (09:00→21:27)
[2019-02-11 09:53] LABS: Anisocytosis Slight; Basophils % (A) 0 %; Calcium 9.3 mg/dL (8.4-10.2); Eosinophils # (A) 0.4 k/uL (0-0.7); Eosinophils % (A) 5 %; HCT 29.1 % (39.0-53.0); HGB 8.6 gm/dL (13.0-17.5); Hypochromasia Moderate; Lymphocytes # (A) 0.8 k/uL (1.0-4.8); Lymphocytes % (A) 10 %; MCH 25.5 pg (25.0-35.0); MCHC 29.5 g/dL (31.0-37.0); MCV 86.5 fL (80.0-100.0); Mean Platelet Volume 6.8; Monocytes # (A) 0.5 k/uL (0-1.0); Monocytes % (A) 6 %; Neutrophils # (A) 6.2 k/uL (1.3-7.7); Neutrophils % (A) 76 %; Platelet Count 511 k/uL (150-450); Potassium 4.9 mmol/L (3.5-5.1); RBC 3.36 m/uL (4.30-5.90); RDW 17.2 % (11.5-15.5); WBC 8.1 k/uL (3.8-10.6)
--- NOTE | 2019-02-11 13:52 | P.DS ---
Providers Date of admission: 02/07/19 15:28 Expected date of discharge: 02/11/19 (Large infected decubitus) Attending physician: Milo Crane There is a dictation on the discharge summary date of service is 02/11/2019. Final diagnoses.,: #1 large infected decubitus on the lumbosacral spine status post debridement by Dr. Hernandez. #2 patient refused to be and rehabilitation for the treatment of the wound as well as the vacuum. #3 anemia with a hemoglobin 8.6, with a mixed picture, patient is noncompliant refusing take the iron pills. #4 cerebral palsy with the disability with atrophic muscle of the lower extremities could not walk or stand however he insisted to go home and refusing shelter as well. #5 history of hypertension and tachycardia with the currently heart rate 56 on the bradycardia with the medication adjustment. Hospital presentation: To the ER: Patient brought to the emergency room with the altered her mental status and dehydration and a UTI, 59 years old white male with a history of cerebral palsy and history of decrease intake for few several days prior to the presentation brought by paramedics with a strong smell of urine order with the hygienic defects and impairment. At that time he was no chills no fever and he had been poor historian. Hospital course: Patient admitted hydrated consultation with Dr. Hernandez the surgeon for debridement and consultation with Dr. Kishore Carreno the infectious disease and patient started on Zosyn IV piggyback. His improved electrolytes and with rehydration hemoglobin drop and iron study was indicating that mixed picture with iron deficiency and patient refused to take even his iron once a day. He is noncompliant he is a smoker and he doesn't want to quit smoking. And Dr. Novak he advised him to be to use a vacuum on the wound for healing as well as farther treatment in the rehabilitation and unit and use of the the wound clinic as well patient again refused with severely noncompliant to the treatment. Patient will be going home as he wishes as he refuses also the shelter and he will be treated and followed by [facility] as well as [facility] followed as outpatient by Dr. Kamara and Dr. Hernandez for the wound and Dr. Britton advised him with the prescription as simple as well the Flagyl however they will be contacting Dr. Novak need for the antibiotic as well as the follow up. Patient stable general condition for the discharge today. And Examination on discharge his temperature 90.8 F oral pulse 56 bpm respiratory rate 16 and the blood pressure is 116/71 with the pulse ox is 95% on room air. HEENT no change neck was supple no JVD. And Chest was increased anteroposterior diameter with the underlying abnormalities of the thorax due to deformity and lung is created bilateral. The Abdomen is soft positive bowel sounds and Extremities no tone as well as muscle atrophy however the perfusion is intact and the unable to use her lower extremities. Neurologically cerebral palsy with the previous history of thrown or fall off the steps before age of 9 years old and continuing with the deformity. Assessment and plan patient will be discharged home today and continue with the current plan and the the follow-up. And will follow up up in the office in one week. These event of dictation by Dr. Perkins thank you Consults: 02/05/19 14:59 Consult Physician Routine Consulting Provider: Susan Kamara Consult Reason/Comments: Decubitus ulcer Do you want consulting provider notified?: Yes 02/05/19 17:51 Consult Physician Routine Consulting Provider: Ruthie Hernandez Consult Reason/Comments: sacral wound debridment and deep cultures Do you want consulting provider notified?: Yes Primary care physician: Dontae Swanson Patient Condition at Discharge: Fair Plan - Discharge Summary Discharge Rx Participant: Yes New Discharge Prescriptions: New Metoprolol Tartrate [Lopressor] 12.5 mg PO BID tab Continue traMADol HCL [Ultram] 50 mg PO TID PRN PRN Reason: Pain Verapamil HCl 120 mg PO TID Melatonin 10 mg PO HS Docusate [Colace] 100 mg PO DAILY Sodium Bicarbonate 325 mg PO DAILY Naproxen 375 mg PO BID Ferrous Sulfate [Iron (65 MG Elemental)] 325 mg PO DAILY Ranitidine HCl 150 mg PO BID Baclofen [Lioresal] 20 mg PO TID Discontinued Metoprolol Tartrate [Lopressor] 25 mg PO BID Discharge Medication List Baclofen [Lioresal] 20 mg PO TID 02/05/19 [History] Docusate [Colace] 100 mg PO DAILY 02/05/19 [History] Ferrous Sulfate [Iron (65 MG Elemental)] 325 mg PO DAILY 02/05/19 [History] Melatonin 10 mg PO HS 02/05/19 [History] Naproxen 375 mg PO BID 02/05/19 [History] Ranitidine HCl 150 mg PO BID 02/05/19 [History] Sodium Bicarbonate 325 mg PO DAILY 02/05/19 [History] Verapamil HCl 120 mg PO TID 02/05/19 [History] traMADol HCL [Ultram] 50 mg PO TID PRN 02/05/19 [History] Metoprolol Tartrate [Lopressor] 12.5 mg PO BID tab 02/08/19 [Rx] Follow up [facility]Ref[facility] [REFERRING] - 1-2 Days
--- NOTE | 2019-02-11 14:26 | PN ---
PROGRESS NOTE DATE OF SERVICE: 02/11/2019 REASON FOR FOLLOWUP: Infected sacral wound. INTERVAL HISTORY: The patient is currently afebrile. Patient has been breathing comfortably. Denies having any chest pain or any cough, no abdominal pain or pain to the sacral wound area. PHYSICAL EXAMINATION: Blood pressure 115/71 with a pulse of 56, temperature 98, he is 95% on room air. General description is a middle-aged male lying in bed in no distress. RESPIRATORY SYSTEM: Unlabored breathing, clear to auscultation anteriorly. HEART: S1, S2. Regular rate and rhythm ABDOMEN: Soft, no tenderness. LABS: Hemoglobin 8.4, white count of 8.9, BUN of 17, creatinine 1.27. The sacral wound culture was showing anaerobic gram-negative bacilli. DIAGNOSTIC IMPRESSION AND PLAN: Patient infected sacral pressure ulcer, status post debridement in view of the extensive wound. Patient would benefit from a wound VAC and possible transfer to halfway resident. As far as antibiotic therapy with Cipro and Flagyl by mouth for 10 days. See in close outpatient followup. MMODL / IJN: [id number] /
[2019-02-11] MEDS: MELATONIN 5 MG TABLET PO SCH (21:27)
[2019-02-11 21:36] VITALS: RESP 20
[2019-02-12] MEDS: PIPERACILLIN-TAZOBACTAM 3.375 GM in SODIUM CHLORIDE 0.9% 100 ML IVPB SCH ×2 (01:26→08:03)
[2019-02-12 05:40] VITALS: BP 135/78; PULSE 55; TEMP 97.7
[2019-02-12] MEDS: DOCUSATE 100 MG CAP PO SCH (07:57)
[2019-02-12] MEDS: FAMOTIDINE 20 MG TAB PO SCH (08:00)
[2019-02-12] MEDS: BACLOFEN 10 MG TAB PO SCH (08:00)
[2019-02-12] MEDS: METOPROLOL TARTRATE 12.5 MG TAB PO SCH (08:00)
[2019-02-12] MEDS: FERROUS SULFATE 325 MG TAB PO SCH ×2 (08:00→08:07)
[2019-02-12] MEDS: SODIUM BICARBONATE TAB 650 MG TAB PO SCH (08:01)
[2019-02-12] MEDS: NAPROXEN 250 MG TAB PO SCH (08:01)
[2019-02-12] MEDS: VERAPAMIL 40 MG TAB PO SCH (08:02)
[2019-02-12] MEDS: SODIUM CHLORIDE 0.9% 1,000 ML IV SCH (08:03)
[2019-02-12] MEDS: traMADol 50 MG TAB PO PRN (08:10)
--- NOTE | 2019-02-12 12:51 | P.DS ---
Providers Date of admission: 02/07/19 15:28 Expected date of discharge: 02/12/19 Attending physician: Milo Crane Addendum on the discharge: Patient was seen and evaluated on 02/11/2019 and discharged home, and patient had his medication Flowers to continue at home as well as he has the antibiotic. I was informed today by the top case assembler Natali that patient stay in the hospital, he did not go home yesterday, due to the ride to his home, patient still stable general condition and they planned to discharge him and transported him by ambulance to his home because no family member to take him and no ride available. No change of the treatment rendered, no change of the diagnosis. His vital sign on discharge stable's temperature 97.7 F oral, heart rate 55 nonlabored fluctuating from 61. Respiratory rate is 20 per minute and the blood pressure 135/78 with a mean 97. His pulse ox 96%. Arrangements will be made to go home today through the charge nurse. Consults: 02/05/19 14:59 Consult Physician Routine Consulting Provider: Susan Kamara Consult Reason/Comments: Decubitus ulcer Do you want consulting provider notified?: Yes 02/05/19 17:51 Consult Physician Routine Consulting Provider: Ruthie Hernandez Consult Reason/Comments: sacral wound debridment and deep cultures Do you want consulting provider notified?: Yes Primary care physician: JOSE Sales Patient Condition at Discharge: Fair Plan - Discharge Summary Discharge Rx Participant: Yes New Discharge Prescriptions: New Metoprolol Tartrate [Lopressor] 12.5 mg PO BID tab Ciprofloxacin HCl [Cipro] 500 mg PO Q12HR #20 tablet metroNIDAZOLE [Flagyl] 500 mg PO TID #30 tab Continue traMADol HCL [Ultram] 50 mg PO TID PRN PRN Reason: Pain Verapamil HCl 120 mg PO TID Melatonin 10 mg PO HS Docusate [Colace] 100 mg PO DAILY Sodium Bicarbonate 325 mg PO DAILY Naproxen 375 mg PO BID Ferrous Sulfate [Iron (65 MG Elemental)] 325 mg PO DAILY Ranitidine HCl 150 mg PO BID Baclofen [Lioresal] 20 mg PO TID Discontinued Metoprolol Tartrate [Lopressor] 25 mg PO BID Discharge Medication List Baclofen [Lioresal] 20 mg PO TID 02/05/19 [History] Docusate [Colace] 100 mg PO DAILY 02/05/19 [History] Ferrous Sulfate [Iron (65 MG Elemental)] 325 mg PO DAILY 02/05/19 [History] Melatonin 10 mg PO HS 02/05/19 [History] Naproxen 375 mg PO BID 02/05/19 [History] Ranitidine HCl 150 mg PO BID 02/05/19 [History] Sodium Bicarbonate 325 mg PO DAILY 02/05/19 [History] Verapamil HCl 120 mg PO TID 02/05/19 [History] traMADol HCL [Ultram] 50 mg PO TID PRN 02/05/19 [History] Metoprolol Tartrate [Lopressor] 12.5 mg PO BID tab 02/08/19 [Rx] Ciprofloxacin HCl [Cipro] 500 mg PO Q12HR #20 tablet 02/11/19 [Rx] metroNIDAZOLE [Flagyl] 500 mg PO TID #30 tab 02/11/19 [Rx] Follow up Appointment(s)/Referral(s): [facility] [NON-STAFF] - 1-2 Days [facility] [Primary Care Provider] - 02/12/19 Susan Kamara MD [STAFF PHYSICIAN] - 1 Week Activity/Diet/Wound Care/Special Instructions: [facility], [address] [phone]; February 28, 2019 11:30 am; will see Dr. Kamara here.`
--- NOTE | 2019-02-12 12:55 | PN ---
PROGRESS NOTE DATE OF SERVICE: 02/12/2019 REASON FOR FOLLOWUP: Infected sacral wound. INTERVAL HISTORY: The patient is currently afebrile. Patient has been breathing comfortably. Denies having any chest pain or any cough. No nausea, vomiting. No abdominal pain. No pain to the sacral wound area. PHYSICAL EXAMINATION: Blood pressure 135/72 with a pulse of 55, temperature 97.7, he is 96% on room air. General description is a middle-aged male, lying in bed in no distress. RESPIRATORY SYSTEM: Unlabored breathing, clear to auscultation anteriorly. HEART S1, S2. Regular rate and rhythm. ABDOMEN: Soft, no tenderness. LABS: No new labs have been obtained today. DIAGNOSTIC IMPRESSION AND PLAN: Patient with infected sacral wound, status post debridement. Culture with anaerobic gram-negative. The patient refused going to custodial. Still recommend applying a wound VAC to his wound for local wound care. Continue therapy with oral Cipro and Flagyl for about 10 days with close outpatient followup. MMODL / IJN: [id number] /
--- NOTE | 2019-02-13 12:40 | CDI ---
Documentation Clarification Form Date: 02/13/19 From: Jessica Heaton Phone: If you have a question regarding this query, please contact Rachel Flower at [phone] Admit Date: 02/07/2019 3:28:00 PM Patient Name: Unruly Manning Visit Number: [id number] Discharge Date: 02/12/2019 12:47:00 PM ATTENTION: The Clinical Documentation Specialists (CDI) and [facility] Coding Staff appreciate your assistance in clarifying documentation. Please respond to the clarification below the line at the bottom and electronically sign. The CDI & [facility] Coding staff will review the response and follow-up if needed. Please note: Queries are made part of the Legal Health Record. If you have any questions, please contact the author of this message via ITS. Dr. Milo Crane The patient presented with infected decubitus ulcer of the sacrum and questionable sepsis. History/Risk Factors: Cerebral palsy, decubitus ulcer of sacrum, paraplegia, wheel chair bound, bedbound. Clinical Indicators: Elevated WBC WBC: 18.7 Lactic acid: 1.1 Blood cultures: No growth. Vitals signs on admission: T. 94.3, P. 62, R. 18, BP 101/57 Treatment: Antibiotics: Patient was given IV Rocephin and IV Piperacillin IV Bolus: 1 liter sodium chloride ID Consult: Documentation in Dr. Kamara's consult note, states the patient was brought to the hospital with sepsis likely source UTI. His subsequent progress notes did not mention sepsis. In your professional opinion, please clarify if these findings signify one of the following conditions and cause, if known: Condition Sepsis ruled out SIRS, without underlying infectious process Sepsis Severe Sepsis Septic Shock Other, please specify Unable to determine Sepsis secondary large necrotic decubetus ulcer MTDD
--- NOTE | 2019-02-13 12:50 | CDI ---
DehyDocumentation Clarification Form Date: 02/13/2019 12:48:00 PM From: Jessica Heaton Phone: If you have a question regarding this query, please contact Rachel Flower at [phone] between 8am and 5pm. Admit Date: 02/07/2019 3:28:00 PM Patient Name: Unruly Manning Visit Number: [id number] Discharge Date: 02/12/2019 12:47:00 PM ATTENTION: The Clinical Documentation Specialists (CDI) and [facility] Coding Staff appreciate your assistance in clarifying documentation. Please respond to the clarification below the line at the bottom and electronically sign. The CDI & [facility] Coding staff will review the response and follow-up if needed. Please note: Queries are made part of the Legal Health Record. If you have any questions, please contact the author of this message via ITS. Dr. Milo Crane Altered Mental Status was documented in the ED note, H&P and Dr. Quijano's consult note. History/Risk Factors: Patient presented with infected decubitus ulcer of the sacrum with abscess and UTI. Clinical Indicators: Altered mental status and decreased responsiveness. Labs: WBC 18/7, Hgb 10.7, Hct 34.3, creatinine 1.27, lactic acid 1.1 X Ray: Minimal basilar atelectasis or scarring may be present. Treatment: Patient was given IV Rocephin and Zosyn and IV fluid bolus then @100 mls/hr In your professional opinion, please clarify the etiology of the Altered Mental Status, if known. Delirium (specify cause): Dementia (if know, specify Type and if with/without Behavioral Disturbance) Encephalopathy (specify Type and Underlying Medical Illness) Other condition (please specify) Unable to determine dehydration MTDD
== END 2019-02-12 12:47 | disposition home health service (06) | DRG 854 ==
LOC: EC 08:35 → 3NMEDONC 14:58 → OBSVTOIN 02-07 15:28
PROVIDERS: ADMIT Internal Medicine; ATTEND Internal Medicine
PROC: 0JB70ZZ Excision of Back Subcutaneous Tissue and Fascia, Open Approach (ICD-10-PCS; principal; 2019-02-07 07:30)
DX: A41.9 Sepsis, unspecified organism (principal); L02.212 Cutaneous abscess of back [any part, except buttock and flank]; N39.0 Urinary tract infection, site not specified; M62.82 Rhabdomyolysis; L89.150 Pressure ulcer of sacral region, unstageable; I95.9 Hypotension, unspecified; M41.9 Scoliosis, unspecified; B35.1 Tinea unguium; R41.0 Disorientation, unspecified; D64.9 Anemia, unspecified; E61.1 Iron deficiency; T45.4X6A Underdosing of iron and its compounds, initial encounter; Z91.128 Patient's intentional underdosing of medication regimen for other reason; E86.0 Dehydration; F17.210 Nicotine dependence, cigarettes, uncomplicated; G80.9 Cerebral palsy, unspecified; J44.9 Chronic obstructive pulmonary disease, unspecified; K59.09 Other constipation; N28.9 Disorder of kidney and ureter, unspecified; Q05.9 Spina bifida, unspecified; R62.7 Adult failure to thrive; T50.905A Adverse effect of unspecified drugs, medicaments and biological substances, initial encounter; R00.1 Bradycardia, unspecified; I73.9 Peripheral vascular disease, unspecified; Z74.01 Bed confinement status; Z79.899 Other long term (current) drug therapy; Z85.048 Personal history of other malignant neoplasm of rectum, rectosigmoid junction, and anus; Z99.3 Dependence on wheelchair; Z92.3 Personal history of irradiation; Z92.21 Personal history of antineoplastic chemotherapy; Z91.19 Patient's noncompliance with other medical treatment and regimen
CPT/HCPCS: 36415; 70450; 71046; 80048; 80053; 80306; 81001; 82140; 82533; 82550; 82728; 83540; 83550; 83605; 84484; 85025; 85045; 85610; 85730; 87040; 87070; 87075; 87086; 87205; 88304; 93005; 96361; 96365; 96375; 99285

== ENCOUNTER 2019-02-20 13:55 | Inpatient (IN) | payer MEDICARE, OTHER ==
[2019-02-20] MEDS ORDERED: SODIUM CHLORIDE 0.9% 500 ML 500 ML IV STA (14:03)
[2019-02-20] MEDS ORDERED: SODIUM CHLORIDE 0.9% 1,000 ML IV STA (14:03)
--- NOTE | 2019-02-20 14:30 | ED ---
Nausea/Vomiting/Diarrhea HPI - General Chief complaint: Nausea/Vomiting/Diarrhea Stated complaint: dehydration Time Seen by Provider: 02/20/19 14:03 Source: patient, EMS Mode of arrival: EMS Limitations: physical limitation - History of Present Illness Initial comments: 59-year-old male presenting today for chief complaint of difficulty urinating, diarrhea, worsening bed sores. Patient states that he has had a recent UTI is currently on ciprofloxacin. Patient states that today since 5:30 with a difficulty urinating. Patient states that he has had decreased oral intake. Patient denies hematuria. Patient states she does not want a catheter. Patient denies any known prostate disease. Patient denies any back trauma or recent falls fevers or increased back pain. Patient states that he has had diarrhea as well for the past 3 days which is coinciding with the urinary changes. Patient states he usually is constipated. He states there is a large volume of diarrhea. Patient [facility] because he had purulent drainage coming from his bed sores on the right glute. Patient states his nurses were concerned and spoke with Dr. Kamara who recommended evaluation the emergency department. Patient denies fever or flulike symptoms he does chest pain shortness of breath like swelling. Patient is no other c omplaints. When I was taking the history patient was able to provide over 300cc, and had bladder scan just prior to urination of 560cc. - Related Data Home Medications Medication Instructions Recorded Confirmed Baclofen [Lioresal] 20 mg PO TID 02/05/19 02/20/19 Docusate [Colace] 100 mg PO DAILY 02/05/19 02/20/19 Melatonin 10 mg PO HS 02/05/19 02/20/19 Naproxen 375 mg PO BID 02/05/19 02/20/19 Ranitidine HCl 150 mg PO BID 02/05/19 02/20/19 Sodium Bicarbonate 650 mg PO BID 02/05/19 02/20/19 Verapamil HCl 120 mg PO TID 02/05/19 02/20/19 traMADol HCL [Ultram] 50 mg PO Q6H PRN 02/05/19 02/20/19 Metoprolol Tartrate [Lopressor] 25 mg PO BID 02/20/19 02/20/19 Multivitamins, Thera [Multivitamin 1 tab PO DAILY 02/20/19 02/20/19 (formulary)] Previous Rx's Medication Instructions Recorded Ciprofloxacin HCl [Cipro] 500 mg PO Q12HR #20 tablet 02/11/19 metroNIDAZOLE [Flagyl] 500 mg PO TID #30 tab 02/11/19 Allergies Allergy/AdvReac Type Severity Reaction Status Date / Time No Known Allergies Allergy Verified 02/20/19 14:59 Review of Systems ROS Statement: Those systems with pertinent positive or pertinent negative responses have been documented in the HPI. ROS Other: All systems not noted in ROS Statement are negative. Past Medical History Past Medical History: Cancer, Musculoskeletal Disorder Additional Past Medical History / Comment(s): Cerbral Palsy History of Any Multi-Drug Resistant Organisms: None Reported Past Surgical History: No Surgical Hx Reported Past Psychological History: No Psychological Hx Reported Smoking Status: Current every day smoker Past Alcohol Use History: None Reported Past Drug Use History: None Reported - Past Family History Mother Family Medical History: No Reported History General Exam - General Exam Comments Initial Comments: General: The patient is awake and alert, in no distress. Eye: +3 mm pupils are equal, round and reactive to light, extra-ocular movements are intact. No nystagmus. There is normal conjunctiva bilaterally. No signs of icterus. Ears, nose, mouth and throat: There are moist mucous membranes and no oral lesions. Neck: The neck is supple, there is no tenderness or JVD. Cardiovascular: There is a regular rate and rhythm. No murmur, rub or gallop is appreciated. Respiratory: Lungs are clear to auscultation, respirations are non-labored, breath sounds are equal. No wheezes, stridor, rales, or rhonchi. Gastrointestinal: Soft, non-distended, non-tender abdomen without masses or organomegaly noted. There is no rebound or guarding present. No CVA tenderness. Bowel sounds are unremarkable. Scar mid of abdomen, vertical Musculoskeletal: Significantly noted kyphosis. Patient has a stage 4/5 press ure ulcer on the right glute. Normal ROM of UE. Strength 5/5. Sensation intact. Radial and DP pulses equal bilaterally 2+. Neurological: A&O x 3. CN II-XII intact grossly, There are no obvious motor or sensory deficits. Coordination appears grossly intact. Speech is normal. Skin: Skin is warm and dry and no rashes or lesions are noted. Psychiatric: Cooperative, appropriate mood & affect, normal judgment. Limitations: physical limitation Course Vital Signs 02/20/19 02/20/19 02/20/19 13:57 14:54 15:00 Temperature 99.1 F Pulse Rate 82 16 L Respiratory 18 16 Rate Blood Pressure 125/72 114/56 O2 Sat by Pulse 95 Oximetry 02/20/19 16:55 Temperature 98.4 F Pulse Rate 79 Respiratory 16 Rate Blood Pressure 138/79 O2 Sat by Pulse 97 Oximetry Medical Decision Making - Medical Decision Making 59-year-old male with history of chronic disability on able to ambulate uses electronic wheelchair, history of pressure ulcers, history of renal disease as well as recent urinary tract infection presented for chief complaint of possibly infected heart pressure ulcer. Nursing staff had noted increased purulent drainage from the right gluteal pressure ulcer. Sent to the emergency department for evaluation. Patient is also noted difficulty starting the stream for the past 2 days as well as 3 days of diarrhea. Upon examination significant purulent drainage from the pressure also concerning for infection. Patient has mild leukocytosis increased from previous visit. Urinary tract infection appears mild clearing most likely from the ciprofloxacin the patient is currently prescribed. Patient was able to urinate after the bladder scanner twice. Large amounts. Patient denies any abdominal pain x-ray of the abdomen revealed no obstructive process. At this time given the physical examination findings I feel patient should be admitted for IV antibiotics and ID consultation. Patient is agreeable with admission. Dr. Kamara on consult. Patient case discussed with Dr. Ferreira who is agreeable to plan and spoke with admitting physician Dr. Howe - Lab Data Result diagrams: 02/20/19 14:51 02/20/19 14:51 Lab Results 02/20/19 02/20/19 02/20/19 Range/Units 14:51 14:51 14:51 WBC 11.8 H (3.8-10.6) k/uL RBC 3.84 L (4.30-5.90) m/uL Hgb 10.1 L (13.0-17.5) gm/dL Hct 32.8 L (39.0-53.0) % MCV 85.3 (80.0-100.0) fL MCH 26.2 (25.0-35.0) pg MCHC 30.8 L (31.0-37.0) g/dL RDW 17.4 H (11.5-15.5) % Plt Count 621 H (150-450) k/uL Neutrophils % 84 % Lymphocytes % 8 % Monocytes % 4 % Eosinophils % 2 % Basophils % 0 % Neutrophils # 9.9 H (1.3-7.7) k/uL Lymphocytes # 1.0 (1.0-4.8) k/uL Monocytes # 0.5 (0-1.0) k/uL Eosinophils # 0.2 (0-0.7) k/uL Basophils # 0.0 (0-0.2) k/uL Hypochromasia Moderate Poikilocytosis Slight Anisocytosis Slight Sodium 136 L (137-145) mmol/L Potassium 4.2 (3.5-5.1) mmol/L Chloride 101 (98-107) mmol/L Carbon Dioxide 27 (22-30) mmol/L Anion Gap 8 mmol/L BUN 20 (9-20) mg/dL Creatinine 0.92 (0.66-1.25) mg/dL Est GFR (CKD-EPI)AfAm >90 (>60 ml/min/1.73 sqM) Est GFR (CKD-EPI)NonAf 90 (>60 ml/min/1.73 sqM) Glucose 86 (74-99) mg/dL Calcium 9.4 (8.4-10.2) mg/dL Total Bilirubin 0.3 (0.2-1.3) mg/dL AST 23 (17-59) U/L ALT 13 L (21-72) U/L Alkaline Phosphatase 108 (38-126) U/L Total Protein 6.4 (6.3-8.2) g/dL Albumin 3.2 L (3.5-5.0) g/dL Lipase 42 (23-300) U/L Urine Color Yellow Urine Appearance Clear (Clear) Urine pH 6.0 (5.0-8.0) Ur Specific [place] 1.025 (1.001-1.035) Urine Protein Trace H (Negative) Urine Glucose (UA) Negative (Negative) Urine Ketones Negative (Negative) Urine Blood Negative (Negative) Urine Nitrite Negative (Negative) Urine Bilirubin Negative (Negative) Urine Urobilinogen 2.0 (<2.0) mg/dL Ur Leukocyte Esterase Small H (Negative) Urine RBC 2 (0-5) /hpf Urine WBC 7 H (0-5) /hpf Ur Squamous Epith Cells 5 H (0-4) /hpf Hyaline Casts 3 H (0-2) /lpf Urine Mucus Rare H (None) /hpf Disposition Clinical Impression: Infected pressure ulcer, Leukocytosis, Difficulty urinating, UTI (urinary tract infection), Diarrhea Disposition: ADMITTED IP TO THIS [facility] Condition: Stable Is patient prescribed a controlled substance at d/c from ED?: No Time of Disposition: 16:46 Decision to Admit Reason: Admit from EC Decision Date: 02/20/19 Decision Time: 16:46
[2019-02-20 15:20] LABS: ALT 13 U/L (21-72); AST 23 U/L (17-59); African American GFR (CKD) >90 (>60 ml/min/1.73 sqM); Albumin 3.2 g/dL (3.5-5.0); Alkaline Phosphatase 108 U/L (38-126); Anion Gap 8 mmol/L; Blood Urea Nitrogen 20 mg/dL (9-20); Calcium 9.4 mg/dL (8.4-10.2); Carbon Dioxide 27 mmol/L (22-30); Chloride 101 mmol/L (98-107); Glucose 86 mg/dL (74-99); Non-African American GFR(CKD) 90 (>60 ml/min/1.73 sqM); Potassium 4.2 mmol/L (3.5-5.1); Sodium 136 mmol/L (137-145); Total Bilirubin 0.3 mg/dL (0.2-1.3); Total Protein 6.4 g/dL (6.3-8.2)
[2019-02-20 15:24] LABS: Appearance,Urine Clear (Clear); Bilirubin,Urine Negative (Negative); Blood,Urine Negative (Negative); Color,Urine Yellow; Glucose,Urine (UA) Negative (Negative); Hyaline Casts,Urine 3 /lpf (0-2); Ketones,Urine Negative (Negative); Leukocyte Esterase,Urine Small (Negative); Mucus,Urine Rare /hpf; Nitrite,Urine Negative (Negative); Protein,Urine Trace (Negative); RBC,Urine 2 /hpf (0-5); Specific Gravity,Urine 1.025 (1.001-1.035); Squamous Epithelial Cell,Urine 5 /hpf (0-4); WBC,Urine 7 /hpf (0-5)
[2019-02-20 15:25] LABS: Anisocytosis Slight; Basophils % (A) 0 %; Eosinophils # (A) 0.2 k/uL (0-0.7); Eosinophils % (A) 2 %; HCT 32.8 % (39.0-53.0); HGB 10.1 gm/dL (13.0-17.5); Hypochromasia Moderate; Lymphocytes % (A) 8 %; MCH 26.2 pg (25.0-35.0); MCHC 30.8 g/dL (31.0-37.0); MCV 85.3 fL (80.0-100.0); Mean Platelet Volume 6.7; Monocytes # (A) 0.5 k/uL (0-1.0); Monocytes % (A) 4 %; Neutrophils # (A) 9.9 k/uL (1.3-7.7); Neutrophils % (A) 84 %; Platelet Count 621 k/uL (150-450); Poikilocytosis Slight; RBC 3.84 m/uL (4.30-5.90); RDW 17.4 % (11.5-15.5); WBC 11.8 k/uL (3.8-10.6)
--- NOTE | 2019-02-20 15:52 | XR ---
EXAMINATION TYPE: XR KUB DATE OF EXAM: 02/20/2019 3:45 PM CLINICAL HISTORY: Abdominal pain TECHNIQUE: Single supine KUB image of the abdomen is obtained. COMPARISON: None. FINDINGS: Multiple compression deformities are seen on the thoracic and probably of the lumbar spine that would be better evaluated with a lateral view. Compression deformities are seen at T12 and T11 a nd possibly at L3 and L2. Diffuse osseous demineralization is seen. Surgical fixation of the left fem oral fracture. Moderate atherosclerosis. Air-filled nondilated large and small bowel loops. Nonobstru ctive bowel gas pattern. No gross evidence of pneumoperitoneum although this finding is limited on [place] imaging. IMPRESSION: Nonobstructive bowel gas pattern. Multiple age-indeterminate compression deformities of the thoracic and likely of the lumbar spine are seen with no priors for comparison.
[2019-02-20] MEDS ORDERED: PIPERACILLIN-TAZOBACTAM 3.375 GM in SODIUM CHLORIDE 0.9% 100 ML IVPB STA (16:35)
[2019-02-20] MEDS ORDERED: NALOXONE 0.4 MG/ML 1 ML VIAL IV PRN (16:38)
[2019-02-20] MEDS: SODIUM CHLORIDE 0.9% 1,000 ML IV SCH (18:22)
[2019-02-20] MEDS: HEPARIN SODIUM,PORCINE 5,000 UNIT/ML 1 ML VIAL SQ SCH (20:28)
[2019-02-20] MEDS: BACLOFEN 10 MG TAB PO PRN (20:28)
[2019-02-20] MEDS: MELATONIN 5 MG TABLET PO SCH (20:28)
[2019-02-20] MEDS: VERAPAMIL 80 MG TAB PO SCH (20:28)
[2019-02-20] MEDS: SODIUM BICARBONATE TAB 650 MG TAB PO SCH (20:28)
[2019-02-20] MEDS: FAMOTIDINE 20 MG TAB PO SCH (20:29)
[2019-02-20] MEDS: METOPROLOL TARTRATE 25 MG TAB PO SCH (20:29)
[2019-02-20] MEDS: VANCOMYCIN ORAL SOLUTION 250 MG/5 ML BOTTLE PO SCH (20:50)
[2019-02-20] MEDS: CHERRY FLAVOR 60 ML BOTTLE PO PRN (20:50)
[2019-02-20] MEDS ORDERED: NAPROXEN 250 MG TAB PO PRN (21:00)
--- NOTE | 2019-02-20 21:50 | HP ---
HISTORY AND PHYSICAL CHIEF COMPLAINT: Worsening sores, difficulty urinating, diarrhea. HISTORY OF PRESENT ILLNESS: This 59-year-old gentleman with a past medical history of multiple medical problems including cerebral palsy, history of musculoskeletal disorder, being followed by Visiting Physician in the outpatient setting, also had decubitus ulcers. Dr. Kamara is following the patient in the outpatient setting. They noticed the patient is having some difficulty in urination and diarrhea. Patient is on p.o. antibiotics ciprofloxacin for recent urinary tract infection. Because of multiple difficulties, the patient came to [facility] and was admitted for further evaluation and treatment. Patient has some large volume diarrhea. There is no history of fever, rigors or chills. No history of headache, loss consciousness or seizures. The C difficile is positive at this time. PAST MEDICAL HISTORY: Of cerebral palsy, history of gait dysfunction, history musculoskeletal disorder, history of cancer, history of nicotine dependence. MEDICATIONS: Prior to admission include: 1. Ultram 50 mg q.6h p.r.n. 2. Flagyl 500 mg p.o. t.i.d. 3. Verapamil 120 mg p.o. t.i.d. 4. Sodium bicarb 650 mg p.o. b.i.d. 5. Ranitidine 150 mg p.o. b.i.d. 6. Naprosyn 370 mg p.o. b.i.d. 7. Multivitamins 1 p.o. daily. 8. Lopressor 25 mg p.o. b.i.d. 9. Melatonin 10 mg p.o. q.h.s. 10.Colace 100 mg p.o. daily. 11.Cipro 500 mg p.o. b.i.d. 12.Lioresal 20 mg p.o. t.i.d. ALLERGIES: None. FAMILY HISTORY: No history of heart disease or strokes in the family. SOCIAL HISTORY: History of smoking, continued ongoing. REVIEW OF SYSTEMS: ENT: Diminished hearing, diminished vision. CARDIOVASCULAR: No angina. RESPIRATORY: As mentioned earlier. GI no nausea or vomiting. as mentioned earlier. NERVOUS SYSTEM: Mentioned earlier. ALLERGIES/IMMUNOLOGY: No asthma or hayfever. MUSCULOSKELETAL as mentioned earlier. HEMATOLOGY/ONCOLOGY: No history of anemia. ENDOCRINE: No history of diabetes or hypothyroidism. CONSTITUTIONAL: As mentioned earlier. DERMATOLOGY as mentioned earlier. RHEUMATOLOGY: Negative. PSYCHIATRY as mentioned earlier. PHYSICAL EXAMINATION: Alert and oriented x3. Pulse is 106. Blood pressure 108/74, respirations 16, temperature 98.7, pulse ox 98% on room air. HEENT: Conjunctivae normal. Oral mucosa moist. NECK is no jugular venous distention. No carotid bruit. No lymph node enlargement. CARDIOVASCULAR: S1, S2. No S3, no S4. RESPIRATORY: Breath sounds diminished in the bases. A few scattered rhonchi. No crackles. ABDOMEN: Soft, nontender. No mass palpable. LEGS: No edema. No swelling. NERVOUS SYSTEM: Higher functions as mentioned earlier. Diffuse contractures and diffuse weakness also present. Otherwise examination of the skin: Significant Grade 3- 4 decubitus ulcer with serosanguineous discharge from the base. Skin as mentioned. JOINTS: No active deforming arthropathy except contractures. LYMPHATICS: No lymph nodes palpable in the neck, axillae or groin. LABS: WBC 11.8, hemoglobin 10.1. Sodium 136. ASSESSMENT: 1. Acute diarrhea with dehydration with acute C difficile colitis. 2. Decubitus ulcer stage 3-4. 3. Hyponatremia. 4. Increased WBC. 5. Anemia. 6. Increased platelets. 7. Cerebral palsy. 8. History of musculoskeletal disorder. 9. History of continued ongoing nicotine dependence. 10.History of recent urinary tract infection. RECOMMENDATIONS AND DISCUSSION: This 59-year-old gentleman who presented with multiple complex medical issues, we will monitor the patient closely. Continue the current management and symptomatic treatment. Otherwise, at this time, I would recommend resume the home medications. IV fluids cautiously. The p.o. vancomycin, IV antibiotics. Follow the cultures. Symptomatic treatment. DVT prophylaxis. Closely follow with Infectious Disease. Guarded prognosis. Further recommendations to follow. MMODL / IJN: [id number] /
[2019-02-21] MEDS: metroNIDAZOLE-NS PMX 500 MG in SALINE 1 100ML.BAG IVPB SCH ×4 (00:12→23:59)
[2019-02-21] MEDS: CHERRY FLAVOR 60 ML BOTTLE PO PRN ×5 (00:12→23:59)
[2019-02-21] MEDS: VANCOMYCIN ORAL SOLUTION 250 MG/5 ML BOTTLE PO SCH ×5 (00:12→23:59)
[2019-02-21] MEDS: SODIUM CHLORIDE 0.9% 1,000 ML IV SCH ×2 (06:36→19:56)
[2019-02-21] MEDS: HEPARIN SODIUM,PORCINE 5,000 UNIT/ML 1 ML VIAL SQ SCH ×2 (08:27→19:55)
[2019-02-21] MEDS: SODIUM BICARBONATE TAB 650 MG TAB PO SCH ×2 (08:27→19:56)
[2019-02-21] MEDS: METOPROLOL TARTRATE 25 MG TAB PO SCH ×2 (08:27→19:55)
[2019-02-21] MEDS: MULTIVITAMINS, THERA 1 EACH TAB PO SCH (08:27)
[2019-02-21] MEDS: VERAPAMIL 80 MG TAB PO SCH ×3 (08:27→19:56)
[2019-02-21] MEDS: FAMOTIDINE 20 MG TAB PO SCH ×2 (08:27→19:56)
[2019-02-21] MEDS ORDERED: DOCUSATE 100 MG CAP PO SCH (09:00)
[2019-02-21 10:12] LABS: Anisocytosis Slight; Basophils # (A) 0.1 k/uL (0-0.2); Basophils % (A) 1 %; Eosinophils # (A) 0.4 k/uL (0-0.7); Eosinophils % (A) 5 %; HGB 9.4 gm/dL (13.0-17.5); Hypochromasia Moderate; Lymphocytes # (A) 0.7 k/uL (1.0-4.8); Lymphocytes % (A) 9 %; MCH 25.5 pg (25.0-35.0); MCHC 30.4 g/dL (31.0-37.0); MCV 83.8 fL (80.0-100.0); Mean Platelet Volume 7.2; Monocytes # (A) 0.4 k/uL (0-1.0); Monocytes % (A) 6 %; Neutrophils # (A) 6.2 k/uL (1.3-7.7); Neutrophils % (A) 79 %; Platelet Count 593 k/uL (150-450); Poikilocytosis Slight; RDW 17.3 % (11.5-15.5); WBC 7.9 k/uL (3.8-10.6)
[2019-02-21 10:20] LABS: African American GFR (CKD) >90 (>60 ml/min/1.73 sqM); Anion Gap 6 mmol/L; Blood Urea Nitrogen 14 mg/dL (9-20); Calcium 8.8 mg/dL (8.4-10.2); Carbon Dioxide 24 mmol/L (22-30); Chloride 109 mmol/L (98-107); Glucose 92 mg/dL (74-99); Non-African American GFR(CKD) >90 (>60 ml/min/1.73 sqM); Sodium 139 mmol/L (137-145)
[2019-02-21 10:22] LABS: Potassium 5.3 mmol/L (3.5-5.1)
[2019-02-21 12:53] VITALS: BMI 15.9
[2019-02-21] MEDS: traMADol 50 MG TAB PO PRN (13:58)
[2019-02-21] MEDS: BACLOFEN 10 MG TAB PO PRN (17:36)
[2019-02-21] MEDS: MORPHINE SULFATE 4 MG/ML SYRINGE IV PRN (19:54)
[2019-02-21] MEDS: MELATONIN 5 MG TABLET PO SCH (19:55)
--- NOTE | 2019-02-21 20:48 | PN ---
PROGRESS NOTE DATE OF SERVICE: 02/21/2019. This 59-year-old gentleman who was admitted with acute diarrhea, dehydration, with acute C difficile colitis, also significant decubitus ulcers. Infectious Disease is following the patient closely. The patient is being closely monitored. Hemoglobin is 9.4. No chest pain. No palpitations. No fever. REVIEW OF SYSTEMS: ENT: No diminished vision. No diminished hearing. CARDIOVASCULAR: No angina or palpitations. RESPIRATORY: As mentioned earlier. GASTROINTESTINAL: As mentioned earlier. as mentioned. Nervous system: Unchanged. CURRENT MEDICATIONS ARE: Reviewed and include: 1. Lioresal 20 mg t.i.d. p.r.n. 2. Schaffer syrup. 3. Colace 100 mg p.o. daily. 4. Pepcid. 5. Heparin. 6. Melatonin. 7. Lopressor. 8. Morphine. 9. Multivitamins 1 p.o. daily. 10.Narcan. 11.Naprosyn. 12.Ultram. 13.Vancomycin. 14.Isoptin. PHYSICAL EXAM: Alert and oriented x3. Pulse 71. Blood pressure 111/60, respiration 18, temperature 99.1. Pulse ox 97% on room air. HEENT are conjunctivae normal. Oral mucosa moist. NECK is no jugular venous distention. No carotid bruit. No lymph node enlargement. CARDIOVASCULAR SYSTEMS: S1, S2 muffled. RESPIRATIONS: Breath sounds diminished in the bases. A few scattered rhonchi and crackles. ABDOMEN: Soft, obese, nontender. LEGS no edema. No swelling. NERVOUS SYSTEM: Contractures. LABS: At this time shows WBC 7.2, hemoglobin 9.4 and sodium 139, potassium 5.3. ASSESSMENT: 1. Acute diarrhea with dehydration with acute C difficile colitis. 2. Decubitus ulcer stage 3-4. 3. Hyponatremia. 4. Increased WBC. 5. Anemia. 6. Increased platelets. 7. Cerebral palsy history. 8. History of musculoskeletal disorder. 9. History of continued ongoing nicotine dependence. 10.History of recent urinary tract infection. RECOMMENDATIONS AND DISCUSSION: I recommend to continue current medications, management and continue symptomatic treatment. Continue vancomycin. Await cultures. Continue the rest of medications. Closely follow with Infectious Disease. PT/OT evaluation. Guarded prognosis because of multiple complex medical issues. Further recommendations to follow. MMODL / IJN: [id number] /
--- NOTE | 2019-02-21 21:45 | P.CONS ---
History of Present Illness - Reason for Consult Consult date: 02/21/19 Sacral pressure ulcer and C. diff colitis Requesting physician: Zahra Howe - Chief Complaint Nausea vomiting and diarrhea x few days - History of Present Illness Patient is 59-year-old male in the past medical history significant for spina bifida and bedbound state in this patient who was recently admitted at this facility with infected sacral pressure ulcer status post debridement OR culture were positive for anaerobic gram-negative bacilli the patient was advised snf placement her local wound care with wound VAC which the patient refused subsequently discharged home with local wound care to the sacral wound with the medahoney and oral Cipro and Flagyl patient is now presenting back to [facility] ER with chief complaints of nausea vomiting and diarrhea the patient's symptoms started due to before he presented to the hospital with multiple episodes of loose stools no blood or mucus in it is becoming some crampy abdominal pain intensity 5-6 out of 10 and no radiation and didn't have any episodes of vomiting with the symptoms the patient was brought back to the [facility] ER on admission to the hospital the patient has b een afebrile mildly elevated white count of 11.1 stool for C. diff sent which came back positive infectious disease was consulted for further recommendation regarding antibiotic and local wound care Review of Systems Positive points has been mentioned in HPI rest of the systems are negative Past Medical History Past Medical History: Cancer, Musculoskeletal Disorder Additional Past Medical History / Comment(s): Cerbral Palsy History of Any Multi-Drug Resistant Organisms: None Reported Past Surgical History: No Surgical Hx Reported Past Anesthesia/Blood Transfusion Reactions: No Reported Reaction Past Psychological History: No Psychological Hx Reported Smoking Status: Current every day smoker Past Alcohol Use History: None Reported Past Drug Use History: None Reported - Past Family History Mother Family Medical History: No Reported History Medications and Allergies Home Medications Medication Instructions Recorded Confirmed Type Baclofen [Lioresal] 20 mg PO TID 02/05/19 02/20/19 History Docusate [Colace] 100 mg PO DAILY 02/05/19 02/20/19 History Melatonin 10 mg PO HS 02/05/19 02/20/19 History Naproxen 375 mg PO BID 02/05/19 02/20/19 History Ranitidine HCl 150 mg PO BID 02/05/19 02/20/19 History Sodium Bicarbonate 650 mg PO BID 02/05/19 02/20/19 History Verapamil HCl 120 mg PO TID 02/05/19 02/20/19 History traMADol HCL [Ultram] 50 mg PO Q6H PRN 02/05/19 02/20/19 History Ciprofloxacin HCl [Cipro] 500 mg PO Q12HR #20 tablet 02/11/19 02/20/19 Rx metroNIDAZOLE [Flagyl] 500 mg PO TID #30 tab 02/11/19 02/20/19 Rx Metoprolol Tartrate [Lopressor] 25 mg PO BID 02/20/19 02/20/19 History Multivitamins, Thera [Multivitamin 1 tab PO DAILY 02/20/19 02/20/19 History (formulary)] Allergies Allergy/AdvReac Type Severity Reaction Status Date / Time No Known Allergies Allergy Verified 02/20/19 14:59 Physical Exam Vitals: Vital Signs Temp Pulse Pulse Resp BP BP BP 02/21/19 07:10 99.0 F 93 16 112/69 02/21/19 05:10 99.6 F 73 20 149/65 02/20/19 23:46 98.5 F 73 20 134/60 02/20/19 22:00 93/55 02/20/19 20:30 99.5 F 95 20 113/59 02/20/19 18:06 98.7 F 106 H 16 108/74 02/20/19 16:55 98.4 F 79 16 138/79 02/20/19 15:00 16 02/20/19 14:54 16 L 114/56 02/20/19 13:57 99.1 F 82 18 125/72 Pulse Ox 02/21/19 07:10 92 L 02/21/19 05:10 97 02/20/19 23:46 96 02/20/19 22:00 02/20/19 20:30 96 02/20/19 18:06 96 02/20/19 16:55 97 02/20/19 15:00 02/20/19 14:54 02/20/19 13:57 95 Intake and Output 02/20/19 02/21/19 02/21/19 22:59 06:59 14:59 Output Total 300 300 Balance -300 -300 Output: Urine 300 300 Other: Voiding Method Urinal # Voids 1 # Bowel Movements 1 GENERAL DESCRIPTION: Middle-aged male lying in bed, no distress. No tachypnea or accessory muscle of respiration use. HEENT: Shows Pallor , no scleral icterus. Oral mucous membrane is dry. No pharyngeal erythema or thrush NECK: Trachea central, no thyromegaly. LUNGS: Unlabored breathing. Clear to auscultation anteriorly. No wheeze or c rackle. HEART: S1, S2, regular rate and rhythm. No loud murmur ABDOMEN: Soft, no tenderness , guarding or rigidity, no organomegaly Examination of the back and it shows a stage III sacral wound with minimal slough tissue no surrounding redness or any foul-smelling drainage EXTREMITIES: No edema of feet. SKIN: No rash, no masses palpable. NEUROLOGICAL: The patient is awake, alert, oriented x3, mood and affect normal. Results CBC & Chem 7: 02/21/19 09:07 02/21/19 09:07 Labs: Abnormal Lab Results - Last 24 Hours (Table) 02/20/19 02/20/19 02/20/19 Range/Units 14:51 14:51 14:51 WBC 11.8 H (3.8-10.6) k/uL RBC 3.84 L (4.30-5.90) m/uL Hgb 10.1 L (13.0-17.5) gm/dL Hct 32.8 L (39.0-53.0) % MCHC 30.8 L (31.0-37.0) g/dL RDW 17.4 H (11.5-15.5) % Plt Count 621 H (150-450) k/uL Neutrophils # 9.9 H (1.3-7.7) k/uL Sodium 136 L (137-145) mmol/L ALT 13 L (21-72) U/L Albumin 3.2 L (3.5-5.0) g/dL Urine Protein Trace H (Negative) Ur Leukocyte Esterase Small H (Negative) Urine WBC 7 H (0-5) /hpf Ur Squamous Epith Cells 5 H (0-4) /hpf Hyaline Casts 3 H (0-2) /lpf Urine Mucus Rare H (None) /hpf C. difficile (EIA) Intrp (Negative) 02/20/19 Range/Units 16:38 WBC (3.8-10.6) k/uL RBC (4.30-5.90) m/uL Hgb (13.0-17.5) gm/dL Hct (39.0-53.0) % MCHC (31.0-37.0) g/dL RDW (11.5-15.5) % Plt Count (150-450) k/uL Neutrophils # (1.3-7.7) k/uL Sodium (137-145) mmol/L ALT (21-72) U/L Albumin (3.5-5.0) g/dL Urine Protein (Negative) Ur Leukocyte Esterase (Negative) Urine WBC (0-5) /hpf Ur Squamous Epith Cells (0-4) /hpf Hyaline Casts (0-2) /lpf Urine Mucus (None) /hpf C. difficile (EIA) Intrp Positive A (Negative) Assessment and Plan Assessment: 1-patient with stage III sacral pressure ulcer recent surgical debridement culture were positive for anaerobic gram-negative bacilli only with no evidence of aerobic gram-negative or gram-positive infection 2-C. diff colitis from recent antibiotic exposure Plan: 1-local wound care to the sacral wound with medahoney at the base of the wound followed by wound VAC black foam continuous pressure 1 25 mmHg to be changed Monday 2-patient will be treated with IV Flagyl 500 mg every 8 hours and oral vancomycin 250 by mouth every 6 hours we will follow on clinical condition and culture to further adjust medication if needed Thank you for this consultation will follow this patient along with you Time with Patient: Greater than 30
[2019-02-22] MEDS: MORPHINE SULFATE 4 MG/ML SYRINGE IV PRN ×3 (05:48→19:35)
[2019-02-22] MEDS: CHERRY FLAVOR 60 ML BOTTLE PO PRN ×4 (05:48→23:11)
[2019-02-22] MEDS: VANCOMYCIN ORAL SOLUTION 250 MG/5 ML BOTTLE PO SCH ×4 (05:48→23:11)
[2019-02-22] MEDS: VERAPAMIL 80 MG TAB PO SCH ×3 (07:47→19:34)
[2019-02-22] MEDS: FAMOTIDINE 20 MG TAB PO SCH ×2 (07:47→19:34)
[2019-02-22] MEDS: MULTIVITAMINS, THERA 1 EACH TAB PO SCH (07:47)
[2019-02-22] MEDS: metroNIDAZOLE-NS PMX 500 MG in SALINE 1 100ML.BAG IVPB SCH (07:48)
[2019-02-22] MEDS: HEPARIN SODIUM,PORCINE 5,000 UNIT/ML 1 ML VIAL SQ SCH ×2 (07:48→19:34)
[2019-02-22] MEDS: SODIUM BICARBONATE TAB 650 MG TAB PO SCH ×2 (07:49→19:34)
[2019-02-22] MEDS: SODIUM CHLORIDE 0.9% 1,000 ML IV SCH (07:49)
[2019-02-22] MEDS: METOPROLOL TARTRATE 25 MG TAB PO SCH ×2 (07:51→19:34)
[2019-02-22 08:44] LABS: Anisocytosis Slight; Basophils # (A) 0.1 k/uL (0-0.2); Basophils % (A) 1 %; Eosinophils # (A) 0.3 k/uL (0-0.7); Eosinophils % (A) 4 %; HCT 28.1 % (39.0-53.0); HGB 8.5 gm/dL (13.0-17.5); Hypochromasia Marked; Lymphocytes # (A) 0.8 k/uL (1.0-4.8); Lymphocytes % (A) 11 %; MCHC 30.4 g/dL (31.0-37.0); MCV 85.6 fL (80.0-100.0); Mean Platelet Volume 6.7; Monocytes # (A) 0.4 k/uL (0-1.0); Monocytes % (A) 5 %; Neutrophils % (A) 78 %; Platelet Count 532 k/uL (150-450); Poikilocytosis Slight; RBC 3.28 m/uL (4.30-5.90); RDW 17.1 % (11.5-15.5); WBC 7.6 k/uL (3.8-10.6)
[2019-02-22 09:01] LABS: African American GFR (CKD) >90 (>60 ml/min/1.73 sqM); Anion Gap 7 mmol/L; Blood Urea Nitrogen 11 mg/dL (9-20); Calcium 8.8 mg/dL (8.4-10.2); Carbon Dioxide 25 mmol/L (22-30); Chloride 107 mmol/L (98-107); Glucose 94 mg/dL (74-99); Non-African American GFR(CKD) >90 (>60 ml/min/1.73 sqM); Potassium 4.8 mmol/L (3.5-5.1); Sodium 139 mmol/L (137-145)
[2019-02-22] MEDS: traMADol 50 MG TAB PO PRN (12:09)
[2019-02-22] MEDS: metroNIDAZOLE 500 MG TAB PO SCH ×2 (16:05→23:11)
--- NOTE | 2019-02-22 17:34 | PN ---
PROGRESS NOTE DATE OF SERVICE: 02/22/2019 This 59-year-old gentleman who was admitted with acute diarrhea, dehydration with acute C difficile colitis also has significant sacral decubitus ulceration about grade 3-4. The patient is refusing wound VAC at this time. No chest pain. No palpitations. No fever. PHYSICAL EXAM: Alert and oriented x2. Pulse 68. Blood pressure 116/56. Respirations 20. Temperature 99.6, pulse ox 94% on room air. HEENT: Conjunctivae normal. NECK: No JVD. CARDIOVASCULAR: S1, S2 muffled. RESPIRATIONS: Breath sounds diminished in the bases, a few scattered rhonchi. No crackles. ABDOMEN: Soft, nontender. LEGS: No edema. No swelling. CENTRAL NERVOUS SYSTEM: Unchanged. BACK: Significant acute ulcers, grade, stage 3-4. LABS: WBC 7.6, hemoglobin 8.5. Other labs are noted. Cultures are showing group D Enterococcus and Francisca albicans. Final reports are pending. ASSESSMENT: 1. Acute diarrhea with dehydration with acute C difficile colitis. 2. Decubitus ulcer stage 3-4 sacral. 3. Group D Enterococcus and Francisca albicans from the wound culture. 4. Hyponatremia. 5. Increased WBC. 6. Anemia. 7. Increased platelets. 8. Cerebral palsy history. 9. History of musculoskeletal disorder. 10.History of continued ongoing nicotine dependence. 11.History of recent urinary tract infection. 12.FULL CODE. RECOMMENDATIONS AND DISCUSSION: In this 59-year-old gentleman who presented with multiple complex medical issues, we will monitor the patient closely, continue the current medications, management. Symptomatic treatment. Currently patient is on p.o. vancomycin. I would recommend continue the rest of the medications. We will talk with legal guardian as well regarding the further course of action. Otherwise prognosis guarded. Further recommendations to follow. MMODL / IJN: [id number] /
--- NOTE | 2019-02-22 18:55 | PN ---
PROGRESS NOTE DATE OF SERVICE: 02/22/2019. REASON FOR FOLLOWUP: 1. Stage III sacral pressure ulcer. 2. C difficile colitis. INTERVAL HISTORY: The patient is currently afebrile. The patient has been breathing comfortably. The patient did agree to wound VAC application yesterday. Subsequently refused it. The patient denies any chest pain or shortness of breath, cough or abdominal pain and diarrhea has slowed down. EXAMINATION: Blood pressure is 115/56, pulse of 68. Temperature 99.3, he is 95% on room air. General description is a middle-aged male lying in bed in no distress. Respiratory system: Unlabored breathing, clear to auscultation anteriorly. Heart S1, S2. Regular rate and rhythm. ABDOMEN: Soft, no tenderness. EXTREMITIES: No edema of the feet. DIAGNOSTIC IMPRESSION AND PLAN: 1. Patient with Stage III sacral pressure ulcer. No significant cellulitis reported yesterday's examination. Patient currently covered with Flagyl grew anaerobic gram negative last time. Culture now showing Francisca Enterococcus. We will hold on any further antibiotic in view of active C difficile. 2. The patient with Clostridium difficile colitis slowing responding to the p.o. vancomycin to continue. 3. Continue supportive care. MMODL / IJN: [id number] / HENNA
[2019-02-22] MEDS: MELATONIN 5 MG TABLET PO SCH (19:32)
[2019-02-23] MEDS: CHERRY FLAVOR 60 ML BOTTLE PO PRN ×2 (05:01→17:27)
[2019-02-23] MEDS: MORPHINE SULFATE 4 MG/ML SYRINGE IV PRN ×3 (05:01→17:25)
[2019-02-23] MEDS: VANCOMYCIN ORAL SOLUTION 250 MG/5 ML BOTTLE PO SCH ×3 (05:01→17:27)
[2019-02-23] MEDS: metroNIDAZOLE 500 MG TAB PO SCH ×2 (07:14→16:17)
[2019-02-23] MEDS: METOPROLOL TARTRATE 25 MG TAB PO SCH ×2 (07:14→20:59)
[2019-02-23] MEDS: FAMOTIDINE 20 MG TAB PO SCH ×2 (07:14→20:59)
[2019-02-23] MEDS: VERAPAMIL 80 MG TAB PO SCH ×2 (07:15→16:17)
[2019-02-23] MEDS: SODIUM BICARBONATE TAB 650 MG TAB PO SCH ×2 (07:15→20:59)
[2019-02-23] MEDS: MULTIVITAMINS, THERA 1 EACH TAB PO SCH (07:15)
[2019-02-23] MEDS: HEPARIN SODIUM,PORCINE 5,000 UNIT/ML 1 ML VIAL SQ SCH ×2 (07:15→20:58)
[2019-02-23] MEDS: traMADol 50 MG TAB PO PRN ×2 (07:19→16:20)
[2019-02-23] MEDS: BACLOFEN 10 MG TAB PO PRN ×2 (07:28→16:20)
[2019-02-23 08:30] LABS: Anisocytosis Slight; Basophils # (A) 0.1 k/uL (0-0.2); Basophils % (A) 1 %; Eosinophils # (A) 0.3 k/uL (0-0.7); Eosinophils % (A) 4 %; HCT 29.9 % (39.0-53.0); HGB 9.3 gm/dL (13.0-17.5); Hypochromasia Marked; Lymphocytes % (A) 13 %; MCH 26.1 pg (25.0-35.0); MCV 84.1 fL (80.0-100.0); Mean Platelet Volume 6.6; Monocytes # (A) 0.4 k/uL (0-1.0); Monocytes % (A) 5 %; Neutrophils % (A) 75 %; Platelet Count 576 k/uL (150-450); Poikilocytosis Slight; RBC 3.55 m/uL (4.30-5.90); WBC 7.9 k/uL (3.8-10.6)
[2019-02-23 08:42] LABS: African American GFR (CKD) >90 (>60 ml/min/1.73 sqM); Anion Gap 8 mmol/L; Blood Urea Nitrogen 12 mg/dL (9-20); Calcium 8.9 mg/dL (8.4-10.2); Carbon Dioxide 25 mmol/L (22-30); Chloride 104 mmol/L (98-107); Glucose 91 mg/dL (74-99); Non-African American GFR(CKD) >90 (>60 ml/min/1.73 sqM); Potassium 4.7 mmol/L (3.5-5.1); Sodium 137 mmol/L (137-145)
--- NOTE | 2019-02-23 17:26 | PN ---
PROGRESS NOTE DATE OF SERVICE: 02/23/2019. This 59 -year-old gentleman admitted with significant acute decubitus also has significant infections also. Infectious Disease recommended possible wound VAC. The cultures are showing enterococcus gallinarum and Francisca albicans and presumptive MRSA. No chest pain. No palpitations. No fever. PHYSICAL EXAM: Alert and oriented x2. Pulse 72. Blood pressure 135/82, respiration 20, temperature 98.2, pulse ox 94% on room air. HEENT: Conjunctivae normal. NECK: No jugular venous distention. CARDIOVASCULAR: S1, S2 muffled. RESPIRATORY: Breath sounds diminished in the bases. A few scattered rhonchi. ABDOMEN: Soft, nontender. LEGS: No edema. No swelling. NERVOUS SYSTEM: Contractures. She has back decubitus ulcer stage 3-4. LABS: WBC 7.9, hemoglobin is 9.3. Other labs are noted. Cultures are noted. C difficile is positive. ASSESSMENT: 1. Acute diarrhea with dehydration, acute C difficile colitis. 2. Decubitus stage 3-4 sacral with polymicrobial juan daniel including Enterococcus Gallinarum, Francisca albicans and presumptive MRSA. 3. Group D Enterococcus and Francisca albicans from the wound culture. 4. Hyponatremia. 5. Increased WBC. 6. Anemia. 7. Increased platelets. 8. Cerebral palsy history. 9. History of musculoskeletal disorder. 10.History of continued ongoing nicotine dependence. 11.History of recurrent urinary tract infection. 12.FULL CODE. RECOMMENDATIONS AND DISCUSSION: Recommend to continue current medications, monitoring, management and symptomatic treatment. Otherwise, at this time, I recommend continue the antibiotics. Continue the vancomycin. Otherwise, hold off the antibiotics because of C difficile. Continue the rest of medication. Wound VAC. Guarded prognosis because of multiple complex medical issues. Further recommendations to follow. MMODL / IJN: [id number] /
[2019-02-23] MEDS: MELATONIN 5 MG TABLET PO SCH (20:59)
[2019-02-24] MEDS: VERAPAMIL 80 MG TAB PO SCH ×4 (00:32→22:48)
[2019-02-24] MEDS: metroNIDAZOLE 500 MG TAB PO SCH ×3 (00:35→16:04)
[2019-02-24] MEDS: CHERRY FLAVOR 60 ML BOTTLE PO PRN ×4 (00:35→18:15)
[2019-02-24] MEDS: VANCOMYCIN ORAL SOLUTION 250 MG/5 ML BOTTLE PO SCH ×4 (00:35→18:16)
[2019-02-24] MEDS: MORPHINE SULFATE 4 MG/ML SYRINGE IV PRN ×4 (00:43→20:44)
[2019-02-24] MEDS: METOPROLOL TARTRATE 25 MG TAB PO SCH ×2 (07:43→20:40)
[2019-02-24] MEDS: HEPARIN SODIUM,PORCINE 5,000 UNIT/ML 1 ML VIAL SQ SCH ×2 (07:48→20:44)
[2019-02-24] MEDS: MULTIVITAMINS, THERA 1 EACH TAB PO SCH (07:49)
[2019-02-24] MEDS: FAMOTIDINE 20 MG TAB PO SCH ×2 (07:49→20:44)
[2019-02-24] MEDS: SODIUM BICARBONATE TAB 650 MG TAB PO SCH ×2 (07:49→20:40)
[2019-02-24] MEDS: traMADol 50 MG TAB PO PRN (10:41)
[2019-02-24] MEDS: MELATONIN 5 MG TABLET PO SCH (20:43)
--- NOTE | 2019-02-24 21:08 | PN ---
PROGRESS NOTE DATE OF SERVICE: 02/24/2019 This 59-year-old gentleman who was admitted with acute diarrhea, dehydration, also had decubitus ulcer. The patient also had Enterococcus gallinarum and MRSA grown from the culture also. The patient is also on broad-spectrum IV antibiotics including the patient being treated with Flagyl and p.o. vancomycin. Please note the patient presented currently with C difficile colitis. The patient is still refusing wound VAC at this time. Patient has a legal guardian. PAST MEDICAL HISTORY: Reviewed. REVIEW OF SYSTEMS: CARDIOVASCULAR: No angina. RESPIRATORY: As mentioned earlier. GI: No nausea. : No dysuria. NERVOUS SYSTEM: No numbness or weakness. CURRENT MEDICATIONS: Reviewed and include: 1. Lioresal 20 mg t.i.d. p.r.n. 2. Schaffer syrup. 3. Pepcid 20 mg p.o. b.i.d. 4. Heparin subcu b.i.d. 5. Melatonin 10 mg q.h.s. 6. Lopressor 25 mg p.o. b.i.d. 7. Flagyl 500 mg p.o. q.8h. 8. Morphine sulfate 4 mg IV q.4 p.r.n. 9. Multivitamins 1 p.o. daily. 10.Narcan 0.2 q.2 p.r.n. 11.Naprosyn 337 mg p.o. b.i.d. 12.Sodium bicarb 650 mg p.o. b.i.d. 13.Ultram 50 mg q.6 p.r.n. 14.Vancomycin 250 mg q.6. 15.Isoptin 120 mg p.o. b.i.d. PHYSICAL EXAMINATION: Patient is alert, oriented x2. Pulse 84, blood pressure 125/74, respiration 20, temperature 99.2, pulse ox 94% on room air. HEENT: Conjunctivae normal. Oral mucosa moist. Neck is no jugular venous distention. No carotid bruit. No lymph node enlargement. CARDIOVASCULAR: S1, S2. RESPIRATORY: Breath sounds diminished in the bases. A few scattered rhonchi and crackles. ABDOMEN: Soft. LEGS: Contractures and decubitus present. LABS: WBC 7.2, hemoglobin 9.3. Other labs are noted. ASSESSMENT: 1. Acute diarrhea with dehydration, acute C difficile colitis, present on admission. 2. Decubitus stage 3-4 sacral with polymicrobial juan daniel including Enterococcus Gallinarum, Francisca albicans and MRSA. 3. Hyponatremia. 4. Increased WBC. 5. Anemia. 6. Increased platelets. 7. Cerebral palsy history. 8. History of musculoskeletal disorder. 9. History of continued ongoing nicotine dependence. 10.History of recurrent urinary tract infection. 11.FULL CODE. 12.LEGAL GUARDIAN. RECOMMENDATIONS AND DISCUSSION: I recommend to continue current medications, symptomatic treatment. Continue the current antibiotics. Monitor closely. Wound VAC per ID recommendations. Further recommendations to follow. MMODL / IJN: [id number] /
[2019-02-25] MEDS: metroNIDAZOLE 500 MG TAB PO SCH ×3 (00:17→14:59)
[2019-02-25] MEDS: CHERRY FLAVOR 60 ML BOTTLE PO PRN ×3 (00:17→11:02)
[2019-02-25] MEDS: VANCOMYCIN ORAL SOLUTION 250 MG/5 ML BOTTLE PO SCH ×3 (00:18→11:02)
[2019-02-25] MEDS: MORPHINE SULFATE 4 MG/ML SYRINGE IV PRN ×3 (00:20→11:00)
--- NOTE | 2019-02-25 01:36 | PN ---
PROGRESS NOTE DATE OF SERVICE: 02/24/2019. REASON FOR FOLLOW UP: C difficile colitis and stage III sacral pressure ulcer. INTERVAL HISTORY: The patient is currently afebrile. The patient finally allowed the wound VAC to be placed. However, the patient is complaining of pain associated with it. The patient denies having any chest pain, shortness of breath or cough. No abdominal pain, diarrhea has improved. PHYSICAL EXAMINATION: Blood pressure 101/65 with a pulse of 77, temperature 98.3. He is 94% on room air. General description is a middle-aged male lying in bed in no distress. RESPIRATORY SYSTEM: Unlabored breathing, clear to auscultation anteriorly. Heart S1, S2. Regular rate and rhythm. Abdomen soft, no tenderness. Sacral wound is currently covered up. LABS: No new labs been obtained today. cultures from the sacral wound did show multiple pathogen. DIAGNOSTIC IMPRESSION AND PLAN: 1. Patient with a stage III sacral pressure ulcer with recent debridement of an infected sacral pressure ulcer: The wound on initial examination did not look infected and the positive cultures more likely representing a colonization. I have recommended no suppressive antibiotic therapy for the. Continue with the wound VAC though the pressure will be down to 100 to see that will help relieve his pain. 2. C difficile colitis responding to the oral vancomycin to continue to finish a 2 week course of therapy. Continue supportive care. MMODL / IJN: [id number] / HENNA
[2019-02-25] MEDS: MULTIVITAMINS, THERA 1 EACH TAB PO SCH (07:46)
[2019-02-25] MEDS: SODIUM BICARBONATE TAB 650 MG TAB PO SCH (07:46)
[2019-02-25] MEDS: VERAPAMIL 80 MG TAB PO SCH ×2 (07:46→16:11)
[2019-02-25] MEDS: FAMOTIDINE 20 MG TAB PO SCH (07:46)
[2019-02-25] MEDS: METOPROLOL TARTRATE 25 MG TAB PO SCH (07:47)
[2019-02-25] MEDS: HEPARIN SODIUM,PORCINE 5,000 UNIT/ML 1 ML VIAL SQ SCH (07:47)
[2019-02-25] MEDS: traMADol 50 MG TAB PO PRN ×2 (07:49→14:59)
--- NOTE | 2019-02-25 13:37 | PN ---
PROGRESS NOTE DATE OF SERVICE: 02/25/2019. REASON FOR FOLLOWUP: 1. Stage III sacral pressure ulcer. 2. C difficile colitis. INTERVAL HISTORY: The patient is currently afebrile. Pain to the sacral wound it has slightly decreased after decreasing the intensity of the pressure on the wound VAC for which the patient is still complaining of. He denies any chest pain, shortness of breath or cough. No abdominal pain. Did mention that the diarrhea comes and goes. No worsening. PHYSICAL EXAMINATION: On examination, blood pressure 92/55 with a pulse of 66, temperature 97.5. He is 94% on room. General description is a middle-aged male, lying in bed, in no distress. RESPIRATORY SYSTEM: Unlabored breathing, clear to auscultation anteriorly. HEART: S1, S2. Regular rate and rhythm. ABDOMEN: Soft, no tenderness. Sacral wound is currently covered with wound VAC. LABS: No new labs have been obtained today. DIAGNOSTIC IMPRESSION AND PLAN: 1. Patient with a stage III sacral pressure ulcer status post debridement on the previous admission. Wound base looks clean. Hence, no antibiotic recommended for the sacral wound. To continue local wound care with wound VAC with lower pressure. 2. Patient with Clostridium difficile colitis to continue with p.o. vancomycin for 10 days to finish course of therapy. Continue with supportive care. MMODL / IJN: [id number] / HENNA
[2019-02-25 15:05] VITALS: BP 102/57; PULSE 69; RESP 18; TEMP 98.6
--- NOTE | 2019-02-25 15:25 | P.DS ---
Providers Date of admission: 02/20/19 16:35 Expected date of discharge: 02/25/19 Attending physician: Zahra Howe Consults: 02/20/19 16:38 Consult Physician Routine Consulting Provider: Susan Kamara Consult Reason/Comments: infection of pressure ulceration gluteal Do you want consulting provider notified?: Yes Primary care physician: Stated None Hospital Course: Final diagnosis Acute diarrhea with dehydration, acute C. difficile colitis, present on admission Decubitus stage 3-4 sacral ulcer with polymicrobial juan daniel including enterococcus gallinarum, Francisca albicans, and MRSA Hyponatremia Increased WBC Anemia Increase platelets Cerebral palsy history History of muscle skeletal disorder History of continued ongoing nicotine dependence History of recurrent urinary tract infections Full code Legal guardian Discharge disposition Patient is being discharged in a stable condition with guarded prognosis to [facility]. Patient will continue on oral antibiotics per infectious disease recommendations. Patient will continue on oral Vanco for a period of 10 days per infectious disease. Patient will be followed by wound care for continued treatment per infectious disease. History of present illness This is a 59-year-old male who was admitted with acute diarrhea, dehydration, and decubitus ulcers. The patient was treated with IV antibiotics and oral an tibiotics per infectious disease. Patient denies any chest pain, shortness breath, or palpitations at this time. Patient is afebrile. Patient is receiving wound care and will go back to [facility] with a wound VAC. Patient denies any nausea or vomiting at this time. Patient is tolerating diet. Patient is currently stable with much improvement. Guarded prognosis On exam vital signs are stable. Blood pressure is 102/57, pulse is 69, respirations are 18, temp is 98.6F, oxygen is 94% on room air. Cardio S1 and S2 are normal, respiratory status shows diminished breath sounds in the bases with a few scattered rhonchi. Abdomen is soft and non-tender. Nervous system shows no focal deficits patient does have contractures of the extremities. Please refer to medication reconciliation sheet for a list of medications. Patient Condition at Discharge: Stable Plan - Discharge Summary Discharge Rx Participant: No New Discharge Prescriptions: New Vancomycin Oral Solution 250 mg PO Q6HR ml Continue traMADol HCL [Ultram] 50 mg PO Q6H PRN PRN Reason: Pain Verapamil HCl 120 mg PO TID Melatonin 10 mg PO HS Docusate [Colace] 100 mg PO DAILY Sodium Bicarbonate 650 mg PO BID Naproxen 375 mg PO BID Ranitidine HCl 150 mg PO BID Baclofen [Lioresal] 20 mg PO TID Ciprofloxacin HCl [Cipro] 500 mg PO Q12HR #20 tablet metroNIDAZOLE [Flagyl] 500 mg PO TID #30 tab Multivitamins, Thera [Multivitamin (formulary)] 1 tab PO DAILY Metoprolol Tartrate [Lopressor] 25 mg PO BID Discharge Medication List Baclofen [Lioresal] 20 mg PO TID 02/05/19 [History] Docusate [Colace] 100 mg PO DAILY 02/05/19 [History] Melatonin 10 mg PO HS 02/05/19 [History] Naproxen 375 mg PO BID 02/05/19 [History] Ranitidine HCl 150 mg PO BID 02/05/19 [History] Sodium Bicarbonate 650 mg PO BID 02/05/19 [History] Verapamil HCl 120 mg PO TID 02/05/19 [History] traMADol HCL [Ultram] 50 mg PO Q6H PRN 02/05/19 [History] Ciprofloxacin HCl [Cipro] 500 mg PO Q12HR #20 tablet 02/11/19 [Rx] metroNIDAZOLE [Flagyl] 500 mg PO TID #30 tab 02/11/19 [Rx] Metoprolol Tartrate [Lopressor] 25 mg PO BID 02/20/19 [History] Multivitamins, Thera [Multivitamin (formulary)] 1 tab PO DAILY 02/20/19 [History] Vancomycin Oral Solution 250 mg PO Q6HR ml 02/25/19 [Rx] Follow up Appointment(s)/Referral(s): Kamar Nolen MD [REFERRING] - 1-2 days Susan Kamara MD [STAFF PHYSICIAN] - 2 Weeks Activity/Diet/Wound Care/Special Instructions: Patient is going to [facility] Activity as tolerated continue with current diet follow up with wound care Continue with antibiotics as instructed continue oral vanco as prescribed for 10 days follow up with primary care provider Discharge Disposition: TRANSFER TO SNF/ECF
== END 2019-02-25 16:57 | DRG 371 ==
LOC: EC 13:55 → EEVIPCON 16:35 → 4MS4W 16:35
PROVIDERS: ADMIT Hospitalist; ATTEND Hospitalist
DX: A04.72 Enterocolitis due to Clostridium difficile, not specified as recurrent (principal); L89.153 Pressure ulcer of sacral region, stage 3; L89.94 Pressure ulcer of unspecified site, stage 4; E87.1 Hypo-osmolality and hyponatremia; N39.0 Urinary tract infection, site not specified; B95.2 Enterococcus as the cause of diseases classified elsewhere; D64.9 Anemia, unspecified; E86.0 Dehydration; F17.210 Nicotine dependence, cigarettes, uncomplicated; G80.9 Cerebral palsy, unspecified; L89.319 Pressure ulcer of right buttock, unspecified stage; Z87.440 Personal history of urinary (tract) infections; Q05.9 Spina bifida, unspecified; Z74.01 Bed confinement status; Z79.899 Other long term (current) drug therapy; B37.2 Candidiasis of skin and nail; B95.62 Methicillin resistant Staphylococcus aureus infection as the cause of diseases classified elsewhere; R26.9 Unspecified abnormalities of gait and mobility; T36.95XA Adverse effect of unspecified systemic antibiotic, initial encounter; Z79.2 Long term (current) use of antibiotics; D47.3 Essential (hemorrhagic) thrombocythemia; Z85.9 Personal history of malignant neoplasm, unspecified
CPT/HCPCS: 36415; 74018; 80048; 80053; 81001; 83690; 85025; 87040; 87070; 87075; 87077; 87186; 87205; 87324; 96361; 96365; 99285

== ENCOUNTER 2019-11-11 23:27 | Emergency (ER) | payer MEDICARE, OTHER ==
[2019-11-11 23:43] VITALS: TEMP 98.3
[2019-11-12 00:33] LABS: Anisocytosis Slight; Basophils % (A) 0 %; Eosinophils # (A) 0.2 k/uL (0-0.7); Eosinophils % (A) 2 %; HGB 9.1 gm/dL (13.0-17.5); Hypochromasia Marked; Lymphocytes # (A) 0.6 k/uL (1.0-4.8); Lymphocytes % (A) 6 %; MCH 19.4 pg (25.0-35.0); MCHC 29.4 g/dL (31.0-37.0); MCV 65.8 fL (80.0-100.0); Mean Platelet Volume 7.6; Microcytosis Marked; Monocytes # (A) 0.4 k/uL (0-1.0); Monocytes % (A) 4 %; Neutrophils # (A) 8.1 k/uL (1.3-7.7); Neutrophils % (A) 85 %; Platelet Count 488 k/uL (150-450); RDW 17.5 % (11.5-15.5); WBC 9.6 k/uL (3.8-10.6)
[2019-11-12 00:42] LABS: INR 1.1 (<1.2); Prothrombin Time 10.9 sec (9.0-12.0)
[2019-11-12 00:44] LABS: Calcium 9.2 mg/dL (8.4-10.2); Potassium 3.9 mmol/L (3.5-5.1); Total Bilirubin 0.4 mg/dL (0.2-1.3); Total Protein 6.2 g/dL (6.3-8.2)
--- NOTE | 2019-11-12 00:46 | XR ---
EXAMINATION TYPE: XR chest 1V portable DATE OF EXAM: 11/12/2019 COMPARISON: NONE HISTORY: Hypoxemia TECHNIQUE: Single view FINDINGS: There is slight elevated left diaphragm. Exam is limited by rotation. There is minimal atel ectasis left lung base. There is no heart failure. There is no pulmonary consolidation. Bony thorax a ppears intact. IMPRESSION: Minimal atelectasis left lung base probably increased compared to last exam.
--- NOTE | 2019-11-12 01:18 | ED ---
General Adult HPI - General Chief complaint: Shortness of Breath Stated complaint: SOB Source: patient, EMS Mode of arrival: EMS Limitations: physical limitation - History of Present Illness Initial comments: The patient is a 59 old male past medical history of cerebral palsy who presents to the emergency department from [facility] for respiratory failure. EMS were called to the facility with report that the patient had oxygen saturations of 84%. The patient was complaining of sore throat however denied increased work of breathing or shortness of breath. He was attempting to refuse transfer to the hospital however he has a public guardian and therefore was transported. He arrives does not demonstrate any signs of respiratory distress. He denies any chest pain. He admits to generalized body aches however this is chronic for him. He denies any fevers or chills. No cough or hemoptysis. Patient normally does not wear oxygen. He denies any abdominal pain. There are no alleviating, precipitating or modifying factors - Related Data Home Medications Medication Instructions Recorded Confirmed Baclofen [Lioresal] 20 mg PO TID 02/05/19 02/20/19 Docusate [Colace] 100 mg PO DAILY 02/05/19 02/20/19 Melatonin 10 mg PO HS 02/05/19 02/20/19 Naproxen 375 mg PO BID 02/05/19 02/20/19 Ranitidine HCl 150 mg PO BID 02/05/19 02/20/19 Sodium Bicarbonate 650 mg PO BID 02/05/19 02/20/19 Verapamil HCl [Calan] 120 mg PO TID 02/05/19 02/20/19 traMADol HCL [Ultram] 50 mg PO Q6H PRN 02/05/19 02/20/19 Metoprolol Tartrate [Lopressor] 25 mg PO BID 02/20/19 02/20/19 Multivitamins, Thera [Multivitamin 1 tab PO DAILY 02/20/19 02/20/19 (formulary)] Previous Rx's Medication Instructions Recorded Vancomycin Oral Solution 250 mg PO Q6HR 10 Days ml 02/25/19 Allergies Allergy/AdvReac Type Severity Reaction Status Date / Time No Known Allergies Allergy Verified 02/20/19 14:59 Review of Systems ROS Statement: Those systems with pertinent positive or pertinent negative responses have been documented in the HPI. ROS Other: All systems not noted in ROS Statement are negative. Past Medical History Past Medical History: Cancer, Musculoskeletal Disorder Additional Past Medical History / Comment(s): Cerbral Palsy History of Any Multi-Drug Resistant Organisms: MRSA Date of last positivie culture/infection: 02/21/19 MDRO Source:: BUTTOCK MRSA Past Surgical History: No Surgical Hx Reported Past Anesthesia/Blood Transfusion Reactions: No Reported Reaction Past Psychological History: No Psychological Hx Reported Smoking Status: Current every day smoker Past Alcohol Use History: None Reported Past Drug Use History: None Reported - Past Family History Mother Family Medical History: No Reported History General Exam Limitations: physical limitation Course Vital Signs 11/11/19 11/12/19 11/12/19 23:34 00:56 01:00 Temperature 98.3 F Pulse Rate 93 102 H 101 H Respiratory 18 11 L 11 L Rate Blood Pressure 118/72 130/90 O2 Sat by Pulse 97 97 97 Oximetry 11/12/19 11/12/19 11/12/19 01:10 01:20 02:10 Temperature Pulse Rate 101 H 101 H 100 Respiratory 10 L 10 L 20 Rate Blood Pressure 142/86 142/86 143/86 O2 Sat by Pulse 97 98 97 Oximetry EKG Findings - EKG Comments: EKG Findings:: EKG demonstrates normal sinus rhythm with a ventricular rate of 94. MS interval 124. QRS 86. QTC 442. No acute ST segment elevations or depressions concerning for ischemic changes Medical Decision Making - Medical Decision Making Upon arrival the patient was placed into room 6. He was initially refusing care from EMS as he denied having any complaints. Upon arrival here the patient is compliant and cooperative. He does agree to laboratory studies and a chest x- ray for evaluation of hypoxia at the nursing facility. The patient is vital here and does have a pulse ox saturation of 98%. No tachypnea. Breath sounds are clear. Laboratory studies demonstrated a chronic hemoglobin of 9.1. CMP shows an alk phos of 205. BNP elevated at 1170. Coronavirus not detected. Chest x-ray demonstrates minimal atelectasis of the left lung base. I discussed results of the patient. He continues to have no increased worker breathing. Oxygen saturations remain in the 97-98% on room air. At this time the patient [facility] I do think is appropriate as the patient has not had any signs of respiratory distress during his ER stay. The patient is a new or worsening symptoms he should return. Patient was then transferred back to his facility in stable condition - Lab Data Result diagrams: 11/12/19 00:15 11/12/19 00:15 Lab Results 11/12/19 11/12/19 11/12/19 Range/Units 00:15 00:15 00:15 WBC 9.6 (3.8-10.6) k/uL RBC 4.70 (4.30-5.90) m/uL Hgb 9.1 L (13.0-17.5) gm/dL Hct 31.0 L (39.0-53.0) % MCV 65.8 L (80.0-100.0) fL MCH 19.4 L (25.0-35.0) pg MCHC 29.4 L (31.0-37.0) g/dL RDW 17.5 H (11.5-15.5) % Plt Count 488 H (150-450) k/uL Neutrophils % 85 % Lymphocytes % 6 % Monocytes % 4 % Eosinophils % 2 % Basophils % 0 % Neutrophils # 8.1 H (1.3-7.7) k/uL Lymphocytes # 0.6 L (1.0-4.8) k/uL Monocytes # 0.4 (0-1.0) k/uL Eosinophils # 0.2 (0-0.7) k/uL Basophils # 0.0 (0-0.2) k/uL Hypochromasia Marked Anisocytosis Slight Microcytosis Marked PT 10.9 (9.0-12.0) sec INR 1.1 (<1.2) APTT 39.0 H (22.0-30.0) sec Sodium 141 (137-145) mmol/L Potassium 3.9 (3.5-5.1) mmol/L Chloride 104 (98-107) mmol/L Carbon Dioxide 26 (22-30) mmol/L Anion Gap 11 mmol/L BUN 41 H (9-20) mg/dL Creatinine 1.13 (0.66-1.25) mg/dL Est GFR (CKD-EPI)AfAm 81 (>60 ml/min/1.73 sqM) Est GFR (CKD-EPI)NonAf 70 (>60 ml/min/1.73 sqM) Glucose 79 (74-99) mg/dL Plasma Lactic Acid Ang (0.7-2.0) mmol/L Calcium 9.2 (8.4-10.2) mg/dL Total Bilirubin 0.4 (0.2-1.3) mg/dL AST 28 (17-59) U/L ALT 15 (4-49) U/L Alkaline Phosphatase 205 H (38-126) U/L Troponin I (0.000-0.034) ng/mL NT-Pro-B Natriuret Pep pg/mL Total Protein 6.2 L (6.3-8.2) g/dL Albumin 3.0 L (3.5-5.0) g/dL Coronavirus (PCR) (Not Detectd) 11/12/19 11/12/19 11/12/19 Range/Units 00:15 00:15 00:15 WBC (3.8-10.6) k/uL RBC (4.30-5.90) m/uL Hgb (13.0-17.5) gm/dL Hct (39.0-53.0) % MCV (80.0-100.0) fL MCH (25.0-35.0) pg MCHC (31.0-37.0) g/dL RDW (11.5-15.5) % Plt Count (150-450) k/uL Neutrophils % % Lymphocytes % % Monocytes % % Eosinophils % % Basophils % % Neutrophils # (1.3-7.7) k/uL Lymphocytes # (1.0-4.8) k/uL Monocytes # (0-1.0) k/uL Eosinophils # (0-0.7) k/uL Basophils # (0-0.2) k/uL Hypochromasia Anisocytosis Microcytosis PT (9.0-12.0) sec INR (<1.2) APTT (22.0-30.0) sec Sodium (137-145) mmol/L Potassium (3.5-5.1) mmol/L Chloride (98-107) mmol/L Carbon Dioxide (22-30) mmol/L Anion Gap mmol/L BUN (9-20) mg/dL Creatinine (0.66-1.25) mg/dL Est GFR (CKD-EPI)AfAm (>60 ml/min/1.73 sqM) Est GFR (CKD-EPI)NonAf (>60 ml/min/1.73 sqM) Glucose (74-99) mg/dL Plasma Lactic Acid Ang 1.1 (0.7-2.0) mmol/L Calcium (8.4-10.2) mg/dL Total Bilirubin (0.2-1.3) mg/dL AST (17-59) U/L ALT (4-49) U/L Alkaline Phosphatase (38-126) U/L Troponin I <0.012 (0.000-0.034) ng/mL NT-Pro-B Natriuret Pep 1170 pg/mL Total Protein (6.3-8.2) g/dL Albumin (3.5-5.0) g/dL Coronavirus (PCR) (Not Detectd) 11/12/19 Range/Units 00:29 WBC (3.8-10.6) k/uL RBC (4.30-5.90) m/uL Hgb (13.0-17.5) gm/dL Hct (39.0-53.0) % MCV (80.0-100.0) fL MCH (25.0-35.0) pg MCHC (31.0-37.0) g/dL RDW (11.5-15.5) % Plt Count (150-450) k/uL Neutrophils % % Lymphocytes % % Monocytes % % Eosinophils % % Basophils % % Neutrophils # (1.3-7.7) k/uL Lymphocytes # (1.0-4.8) k/uL Monocytes # (0-1.0) k/uL Eosinophils # (0-0.7) k/uL Basophils # (0-0.2) k/uL Hypochromasia Anisocytosis Microcytosis PT (9.0-12.0) sec INR (<1.2) APTT (22.0-30.0) sec Sodium (137-145) mmol/L Potassium (3.5-5.1) mmol/L Chloride (98-107) mmol/L Carbon Dioxide (22-30) mmol/L Anion Gap mmol/L BUN (9-20) mg/dL Creatinine (0.66-1.25) mg/dL Est GFR (CKD-EPI)AfAm (>60 ml/min/1.73 sqM) Est GFR (CKD-EPI)NonAf (>60 ml/min/1.73 sqM) Glucose (74-99) mg/dL Plasma Lactic Acid Ang (0.7-2.0) mmol/L Calcium (8.4-10.2) mg/dL Total Bilirubin (0.2-1.3) mg/dL AST (17-59) U/L ALT (4-49) U/L Alkaline Phosphatase (38-126) U/L Troponin I (0.000-0.034) ng/mL NT-Pro-B Natriuret Pep pg/mL Total Protein (6.3-8.2) g/dL Albumin (3.5-5.0) g/dL Coronavirus (PCR) Not Detected (Not Detectd) Disposition Clinical Impression: Sacral decubitus ulcer, stage III Disposition: HOME SELF-CARE Condition: Stable Instructions (If sedation given, give patient instructions): Pressure Injury (ED) Is patient prescribed a controlled substance at d/c from ED?: No Referrals: Gomez Acosta MD [Primary Care Provider] - 1-2 days Time of Disposition: 01:18
[2019-11-12 02:13] VITALS: BP 143/86; PULSE 100; RESP 20
== END 2019-11-12 02:13 | disposition home or self-care (01) ==
LOC: EC 23:27
DX: L89.153 Pressure ulcer of sacral region, stage 3 (principal); J98.11 Atelectasis; F17.200 Nicotine dependence, unspecified, uncomplicated; Z20.828 Contact with and (suspected) exposure to other viral communicable diseases; Z85.9 Personal history of malignant neoplasm, unspecified
CPT/HCPCS: 36415; 71045; 80053; 83605; 83880; 84484; 85025; 85610; 85730; 87635; 93005; 99285